=== PATIENT | male | born 1950 | race Caucasian/White ===

== ENCOUNTER → 2017-05-03 | Outpatient (CLI) | payer MEDICARE, OTHER ==
[2017-05-03 14:25] VITALS: BP 134/90; PULSE 83; RESP 16; TEMP 97.6
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
== END | disposition home or self-care (01) ==
LOC: PNWHC3 13:56
PROVIDERS: ATTEND Specialist
DX: M51.36 Other intervertebral disc degeneration, lumbar region (principal); M47.816 Spondylosis without myelopathy or radiculopathy, lumbar region; M46.86 Other specified inflammatory spondylopathies, lumbar region; M46.1 Sacroiliitis, not elsewhere classified; I48.91 Unspecified atrial fibrillation; I10 Essential (primary) hypertension; K21.9 Gastro-esophageal reflux disease without esophagitis; Z87.891 Personal history of nicotine dependence; Z79.01 Long term (current) use of anticoagulants; Z79.899 Other long term (current) drug therapy
CPT/HCPCS: 99211

== ENCOUNTER → 2017-05-21 | Outpatient (CLI) | payer MEDICARE, OTHER ==
--- NOTE | 2017-05-21 16:51 | US ---
EXAMINATION TYPE: US venous doppler duplex LE RT DATE OF EXAM: 05/21/2017 4:41 PM COMPARISON: NONE CLINICAL HISTORY: I82.401 Acute embolism and thrombosis RLE. Right lower leg pain and swelling x 4 da ys, patient on blood thinners SIDE PERFORMED: Right TECHNIQUE: The lower extremity deep venous system is examined utilizing real time linear array sonog sarah with graded compression, doppler sonography and color-flow sonography. VESSELS IMAGED: External Iliac Vein (EIV) Common Femoral Vein Deep Femoral Vein Greater Saphenous Vein * Femoral Vein Popliteal Vein Small Saphenous Vein * Proximal Calf Veins (* superficial vessels) Right Leg: Appears negative for DVT IMPRESSION: Negative exam. No evidence of deep venous thrombosis in the right leg.
== END | disposition home or self-care (01) ==
LOC: RADUSMAIN 16:06
PROVIDERS: ATTEND Podiatrist
DX: I82.401 Acute embolism and thrombosis of unspecified deep veins of right lower extremity (principal)

== ENCOUNTER 2017-05-26 08:15 | Day surgery (SDC) | payer MEDICARE, OTHER ==
[2017-05-24 11:55] VITALS: BMI 32.5
[2017-05-26] MEDS ORDERED: LACTATED RINGERS 1,000 ML IV ONE (09:34)
[2017-05-26 09:35] VITALS: RESP 18; TEMP 98.1
[2017-05-26] MEDS ORDERED: LIDOCAINE 1% 20 ML VIAL (10MG/ML) FOR IV START INTRADERMA ONE (09:36)
[2017-05-26] MEDS ORDERED: LACTATED RINGERS 1,000 ML IV SCH (09:45)
[2017-05-26 09:52] LABS: INR 1.2 (<1.1); Prothrombin Time 12.3 sec (9.0-12.0)
--- NOTE | 2017-05-26 10:29 | P.PCN ---
Date of Procedure: 05/26/17 Preoperative Diagnosis: Postoperative Diagnosis: Procedure(s) Performed: Implants: Surgeon: Sebastián Villanueva Pathology: none sent Condition: stable Disposition: PACU Indications for Procedure: Operative Findings: Description of Procedure: PREOPERATIVE DIAGNOSIS: 1-Lumbar radiculitis. POSTOPERATIVE DIAGNOSIS: 1-Lumbar radiculitis. PROCEDURE 1. Lumbar epidural steroid injection under fluoroscopic guidance at the L5-S1 level. 2. Lumbar epidurogram. ANESTHESIA: Local with 1% lidocaine; IV sedation with Versed/fentanyl. EBL: Minimal PROCEDURE INDICATION: The patient with low back pain and radiculitis symptoms unresponsive to conservative treatment. Fluoroscopy was used to optimize visualization of the needle placement and to maximize safety. Patient has been off Coumadin four days and INR 1.2 this AM. PROCEDURE DESCRIPTION / TECHNIQUE: The patient was seen and identified in the preoperative area. Risks, benefits, complications, and alternatives were discussed with the patient, including but not limited to bleeding, infection, nerve damage, allergic reactions to medications, and incomplete pain relief. The patient agreed to proceed with the procedure and signed the consent after all questions were answered. IV was started, and vital signs were stable. Patient was taken to the OR and time out was completed to confirm patient position, procedure, laterality of pain, and allergies. The patient was placed in the prone position on procedure table and a pillow was placed under the abdomen to reduce lumbar lordosis. The lumbosacral area was prepped and draped in the usual sterile fashion. Critical pause was taken. Vital signs were closely monitored during the procedure. Conscious sedation was used during the procedure to decrease patients anxiety. Using anterior-posterior fluoroscopy, the L5-S1 interlaminar space was identified and the skin over this site was marked and then infiltrated with 1% lidocaine subcutaneously. Subsequently, a 20-gauge 3.5-inch Tuohy epidural needle was inserted and advanced toward the epidural space using the Loss of resistance technique and guided by AP and lateral fluoroscopy. The correct needle position in the epidural space was verified with the injection of 2 mL of the water soluble contrast dye Omnipaque 300 contrast and observing an excellent epidurogram with the epidural spread of the dye, after negative aspiration for blood and CSF and in the absence of paresthesias. Again after negative aspiration, a 8 ml mixture containing 20 mg of PF Decadron and 5 ml of preservative free Normal Saline, and 2 ml of preservative free lidocaine 1% solution was injected and a washout of epidurogram was seen. Needle was withdrawn intact, skin was cleansed, and bandages were applied. COMPLICATIONS: None COMMENTS: DISPOSITION / PLANS: The patient was placed in a supine position and transferred to the recovery area in a stable condition for observation. There was no evidence of lower extremity motor or sensory deficit after the procedure. Patient was discharged from the recovery room after meeting discharge criteria. Home discharge instructions were given to the patient by the staff. The patient was reexamined prior to discharge and there were no issues. The patient will schedule a repeat LESI and was given a script for PT/ INR.
[2017-05-26] MEDS ORDERED: IV FLUID CONTINUATION 1,000 ML IV ONE (10:40)
--- NOTE | 2017-05-26 10:47 | FL ---
EXAMINATION TYPE: FL guided pain mgmt statistic DATE OF EXAM: 05/26/2017 HISTORY: Flouroscopy time 13 seconds of fluoroscopy provided. IMPRESSION: 1. Fluoroscopy time.
[2017-05-26 10:59] VITALS: BP 142/88; PULSE 83
== END 2017-05-26 11:09 | disposition home or self-care (01) ==
LOC: ORPAIN 08:15
PROVIDERS: ATTEND Anesthesiology
DX: G89.29 Other chronic pain (principal); M54.16 Radiculopathy, lumbar region; I48.91 Unspecified atrial fibrillation; I10 Essential (primary) hypertension; M19.90 Unspecified osteoarthritis, unspecified site; Z87.891 Personal history of nicotine dependence; Z79.01 Long term (current) use of anticoagulants; Z79.82 Long term (current) use of aspirin; Z79.899 Other long term (current) drug therapy; Z91.030 Bee allergy status
CPT/HCPCS: 85610; 62323; J2250; J1100; Q9965; J3010

== ENCOUNTER → 2017-06-15 | Outpatient (CLI) | payer MEDICARE, OTHER ==
[2017-06-15 10:12] LABS: INR 1.3 (<1.2); Prothrombin Time 12.6 sec (9.0-12.0)
== END | disposition home or self-care (01) ==
LOC: LABPAT 09:32
PROVIDERS: ATTEND Anesthesiology
DX: Z01.812 Encounter for preprocedural laboratory examination (principal)
CPT/HCPCS: 85610

== ENCOUNTER → 2019-03-06 | Outpatient (CLI) | payer MEDICARE, OTHER ==
[2019-03-06 15:17] LABS: Prothrombin Time 10.3 sec (9.0-12.0)
== END ==
LOC: LABWHC1 14:49
PROVIDERS: ATTEND Psychiatry & Neurology Neurology
DX: D65 Disseminated intravascular coagulation [defibrination syndrome] (principal); Z79.01 Long term (current) use of anticoagulants
CPT/HCPCS: 36415; 85610

== ENCOUNTER → 2019-03-21 | Outpatient (CLI) | payer MEDICARE, OTHER ==
[2019-03-21 13:46] LABS: Prothrombin Time 10.6 sec (9.0-12.0)
== END ==
LOC: LABWHC1 12:26
PROVIDERS: ATTEND Psychiatry & Neurology Pain Medicine
DX: Z51.81 Encounter for therapeutic drug level monitoring (principal)
CPT/HCPCS: 36415; 85610

== ENCOUNTER → 2019-03-28 | Outpatient (CLI) | payer MEDICARE, OTHER ==
[2019-03-28 10:27] LABS: Prothrombin Time 10.6 sec (9.0-12.0)
== END | disposition home or self-care (01) ==
LOC: LABWHC1 09:31
PROVIDERS: ATTEND Psychiatry & Neurology Neurology
DX: Z51.81 Encounter for therapeutic drug level monitoring (principal)
CPT/HCPCS: 36415; 85610

== ENCOUNTER → 2019-03-29 | Outpatient (CLI) | payer MEDICARE, OTHER ==
[2019-03-29 10:46] LABS: INR 0.9 (<1.2); Prothrombin Time 10.2 sec (9.0-12.0)
== END | disposition home or self-care (01) ==
LOC: LABWHC1 10:02
PROVIDERS: ATTEND Psychiatry & Neurology Neurology
DX: D65 Disseminated intravascular coagulation [defibrination syndrome] (principal)
CPT/HCPCS: 36415; 85610

== ENCOUNTER → 2019-04-26 | Outpatient (CLI) | payer MEDICARE, OTHER ==
[2019-04-26 12:38] LABS: Prothrombin Time 10.7 sec (9.0-12.0)
== END | disposition home or self-care (01) ==
LOC: LABWHC1 11:53
PROVIDERS: ATTEND Psychiatry & Neurology Neurology
DX: D65 Disseminated intravascular coagulation [defibrination syndrome] (principal); Z79.01 Long term (current) use of anticoagulants
CPT/HCPCS: 36415; 85610

== ENCOUNTER → 2019-08-03 | Outpatient (CLI) | payer MEDICARE, OTHER ==
[2019-08-03 11:18] LABS: INR 1.1 (<1.2); Prothrombin Time 11.3 sec (9.0-12.0)
== END | disposition home or self-care (01) ==
LOC: LABWHC1 10:05
PROVIDERS: ATTEND Psychiatry & Neurology Pain Medicine
DX: Z01.812 Encounter for preprocedural laboratory examination (principal); Z51.81 Encounter for therapeutic drug level monitoring
CPT/HCPCS: 36415; 85610

== ENCOUNTER → 2019-08-17 | Outpatient (CLI) | payer MEDICARE, OTHER ==
[2019-08-17 13:16] LABS: Prothrombin Time 10.3 sec (9.0-12.0)
== END | disposition home or self-care (01) ==
LOC: LABWHC1 12:36
PROVIDERS: ATTEND Psychiatry & Neurology Pain Medicine
DX: Z51.81 Encounter for therapeutic drug level monitoring (principal); Z79.899 Other long term (current) drug therapy
CPT/HCPCS: 36415; 85610

== ENCOUNTER → 2020-07-25 | Outpatient (CLI) | payer MEDICARE, OTHER ==
--- NOTE | 2020-07-25 13:52 | BD ---
EXAMINATION TYPE: Axial Bone Density DATE OF EXAM: 07/25/2020 COMPARISON: NONE CLINICAL HISTORY: Height: 68.7 IN Weight: 243 LBS RISK FACTORS HISTORY OF: Active: YES MEDICATIONS: Additional Medications: HEART MEDS, BLOOD PRESSURE MEDS, GABAPENTIN, PAIN PILL EXAM MEASUREMENTS: Bone mineral densitometry was performed using the Mashed jobs System. Bone mineral density as measured about the Lumbar spine is: ----- L1-L4(G/cm2): 1.510 T Score Values are as follows: ----- L2: 2.5 ----- L3: 3.0 ----- L4: 3.8 ----- L1-L4: 2.7 Bone mineral density BASELINE Bone mineral density about the R hip (g/cm2): 0.974 Bone mineral density about the L hip (g/cm2): 0.886 T Score values are as follows: -----R Neck: -0.5 -----L Neck: -1.1 -----R Total: 1.1 -----L Total: 0.7 Bone mineral density BASELINE IMPRESSION: No evidence for osteoporosis or osteopenia. NOTE: T-SCORE=SD OF THE YOUNG ADULT MEAN.
== END | disposition home or self-care (01) ==
LOC: RADBDWWP 10:26
PROVIDERS: ATTEND Psychiatry & Neurology Neurology
DX: M89.9 Disorder of bone, unspecified (principal)
CPT/HCPCS: 77080

== ENCOUNTER → 2020-07-31 | Outpatient (CLI) | payer MEDICARE, OTHER ==
--- NOTE | 2020-07-31 15:49 | US ---
EXAMINATION TYPE: US abdomen comp/pelvis limited DATE OF EXAM: 07/31/2020 COMPARISON: CT 04/01/2016 CLINICAL HISTORY: R10.9 L Renal Cyst. Extremely limited due to overlying bowel gas. Patient has herni a and was not NPO at time of exam EXAM MEASUREMENTS: Liver Length: 16.5 cm Gallbladder Wall: 0.2 cm CBD: 0.3 cm Right Kidney: 11.6 X 6.5 X 6.5 cm Left Kidney: 12.1 x 5.2 x 4.9 cm Spleen: 11.4 cm Pancreas: Obscured by bowel gas Liver: Coarse, heterogeneous Gallbladder: wnl CBD: wnl Spleen: wnl Right Kidney: No hydronephrosis or masses seen Left Kidney: No hydronephrosis. Cystic area visualized measuring 5.1 x 3.8 x 3.9 cm Upper IVC: obscured Abd Aorta: Obscured by overlying bowel gas Bladder: wnl as visualized IMPRESSION: 1. Left renal cyst.
== END | disposition home or self-care (01) ==
LOC: RADUSWWP 14:43
PROVIDERS: ATTEND Internal Medicine
DX: N28.1 Cyst of kidney, acquired (principal)
CPT/HCPCS: 76700; 76857

== ENCOUNTER 2023-08-03 21:19 | Inpatient (IN) | payer OTHER, MEDICARE ==
[2023-08-03] MEDS ORDERED: MORPHINE SULFATE 4 MG/ML SYRINGE IV STA (22:41)
[2023-08-03] MEDS ORDERED: SODIUM CHLORIDE 0.9% 1,000 ML IV STA (22:41)
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
[2023-08-03 22:55] LABS: Basophils % (A) 0 %; Eosinophils # (A) 0.2 k/uL (0-0.7); Eosinophils % (A) 2 %; Lymphocytes # (A) 1.7 k/uL (1.0-4.8); Lymphocytes % (A) 17 %; MCHC 32.7 g/dL (31.0-37.0); MCV 91.8 fL (80.0-100.0); Mean Platelet Volume 7.6; Monocytes # (A) 0.6 k/uL (0-1.0); Monocytes % (A) 6 %; Neutrophils % (A) 73 %; Platelet Count 230 k/uL (150-450); RBC 6.38 m/uL (4.30-5.90); RDW 13.7 % (11.5-15.5); WBC 9.6 k/uL (3.8-10.6)
[2023-08-03 22:59] LABS: INR 1.1 (<1.2); Prothrombin Time 11.4 sec (9.0-12.0)
[2023-08-03 23:51] LABS: ALT 20 U/L (4-49); African American GFR (CKD) >90 (>60 ml/min/1.73 sqM); Anion Gap 9 mmol/L; Blood Urea Nitrogen 13 mg/dL (9-20); Calcium 8.8 mg/dL (8.4-10.2); Carbon Dioxide 27 mmol/L (22-30); Chloride 103 mmol/L (98-107); Glucose 116 mg/dL (74-99); Non-African American GFR(CKD) >90 (>60 ml/min/1.73 sqM); Sodium 139 mmol/L (137-145)
[2023-08-03 23:57] LABS: HCT 58.6 % (39.0-53.0); HGB 19.2 gm/dL (13.0-17.5)
[2023-08-04] LABS: AST 39 U/L (17-59); Albumin 4.2 g/dL (3.5-5.0); Potassium 5.1 mmol/L (3.5-5.1); Total Bilirubin 1.5 mg/dL (0.2-1.3); Total Protein 7.8 g/dL (6.3-8.2)
[2023-08-04 00:01] LABS: Alkaline Phosphatase 77 U/L (38-126)
--- NOTE | 2023-08-04 00:59 | CT ---
EXAM: CT Abdomen and Pelvis With Intravenous Contrast CLINICAL HISTORY: ITS.REASON CT Reason: abdominal pain TECHNIQUE: Axial computed tomography images of the abdomen and pelvis with intravenous contrast. CTDI is 43.7 mGy and DLP is 2270.2 mGy-cm. This CT exam was performed using one or more of the following dose reduction techniques: automated exposure control, adjustment of the mA and/or kV according to patient size, and/or use of iterative reconstruction technique. COMPARISON: No relevant prior studies available. FINDINGS: Lung bases: Unremarkable. No mass. No consolidation. ABDOMEN: Liver: Unremarkable. No mass. Gallbladder and bile ducts: Unremarkable. No calcified stones. No ductal dilation. Pancreas: Unremarkable. No mass. No ductal dilation. Spleen: Unremarkable. No splenomegaly. Adrenals: Unremarkable. No mass. Kidneys and ureters: LEFT upper pole renal cyst measures 6.0 x 5.9 cm. No hydronephrosis. Stomach and bowel: Ventral abdominal wall hernia which is multifaceted and contains multiple loops of small bowel. Associate, small bowel obstruction, with entering small bowel dilated to 4.1 cm. The overall size of the hernia is approximately 22.8 x 9.4 x 9.5 cm. Surgical evaluation recommended. Diverticulosis, without acute diverticulitis. No free intraperitoneal air. PELVIS: Appendix: No acute appendicitis. Bladder: Unremarkable. No mass. Reproductive: Unremarkable as visualized. ABDOMEN and PELVIS: Intraperitoneal space: Unremarkable. No free air. No significant fluid collection. Bones/joints: Degenerative changes of the spine. No acute fracture. No dislocation. Soft tissues: Fat-containing LEFT inguinal hernia. Vasculature: Atherosclerotic changes of the aorta. No abdominal aortic aneurysm. Lymph nodes: Unremarkable. No enlarged lymph nodes. IMPRESSION: Large ventral abdominal wall hernia contributing to small bowel obstruction. Surgical evaluation recommended.
[2023-08-04] MEDS ORDERED: MORPHINE SULFATE 4 MG/ML SYRINGE IV STA (01:47)
[2023-08-04] MEDS ORDERED: MORPHINE SULFATE 4 MG/ML SYRINGE IV PRN (02:03)
[2023-08-04] MEDS ORDERED: NALOXONE 0.4 MG/ML 1 ML VIAL IV PRN ×2 (02:03→11:40)
[2023-08-04] MEDS ORDERED: PIPERACILLIN-TAZOBACTAM 3.375 GM in SODIUM CHLORIDE 0.9% 100 ML IVPB STA (02:04)
[2023-08-04] MEDS: SODIUM CHLORIDE 0.9% 1,000 ML IV SCH ×3 (02:53→16:31)
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
[2023-08-04] MEDS ORDERED: ONDANSETRON 4 MG/2 ML VIAL IVP PRN ×2 (04:51→11:40)
--- NOTE | 2023-08-04 05:29 | XR ---
EXAM: XR Chest, 1 View CLINICAL HISTORY: ITS.REASON XR Reason: NGT placement TECHNIQUE: Frontal view of the chest. COMPARISON: 06/17/2015 FINDINGS: Lungs: Unremarkable. No consolidation. Pleural space: Unremarkable. No pneumothorax. Heart: Unremarkable. No cardiomegaly. Mediastinum: Unremarkable. Bones/joints: Unremarkable. IMPRESSION: Normal chest x-ray.
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
[2023-08-04] MEDS ORDERED: HEPARIN SODIUM,PORCINE/PF 5,000 UNIT/0.5 ML SYRINGE SQ ONE (09:56)
[2023-08-04] MEDS ORDERED: DEXAMETHASONE SOD PHOSPHATE 4 MG/ML 1 ML VIAL IVP ONE (10:10)
[2023-08-04] MEDS ORDERED: ONDANSETRON 4 MG/2 ML VIAL IVP ONE (10:10)
[2023-08-04] MEDS ORDERED: METOPROLOL TARTRATE 5 MG/5 ML VIAL IVP ONE (10:10)
[2023-08-04] MEDS ORDERED: ROCURONIUM 10 MG/ML (5 ML VIAL) IV ONE (10:10)
[2023-08-04] MEDS ORDERED: fentaNYL (PF) 50 MCG/ML 2 ML AMP ONE (10:10)
[2023-08-04] MEDS ORDERED: HYDROmorphone (PF) 1 MG/ML ONE (10:10)
[2023-08-04] MEDS ORDERED: MIDAZOLAM 2 MG/2 ML VIAL ONE (10:10)
[2023-08-04] MEDS ORDERED: LIDOCAINE 2% INJ 20 MG/ML (2 ML VIAL) ONE (10:10)
[2023-08-04] MEDS ORDERED: SUCCINYLCHOLINE CHLORIDE 200 MG/10 ML VIAL IV ONE (10:10)
[2023-08-04] MEDS ORDERED: PROPOFOL 10 MG/ML 20 ML VIAL IV ONE (10:10)
[2023-08-04] MEDS ORDERED: IV FLUID CONTINUATION 1,000 ML IV ONE (10:20)
[2023-08-04] MEDS ORDERED: LACTATED RINGERS 1,000 ML IV ONE ×2 (11:20→11:40)
[2023-08-04] MEDS ORDERED: METOCLOPRAMIDE 5 MG/ML 2 ML VIAL IVP PRN (11:40)
[2023-08-04] MEDS ORDERED: HYDROmorphone 0.5 MG/0.5 ML SYRINGE IVP PRN (11:40)
[2023-08-04] MEDS ORDERED: ACETAMINOPHEN TAB 325 MG TAB PO PRN (11:40)
--- NOTE | 2023-08-04 11:40 | P.OP ---
Date of Procedure: 08/04/23 Preoperative Diagnosis: Recurrent Incarcerated incisional hernia with small bowel obstruction Postoperative Diagnosis: Same Procedure(s) Performed: Open repair of recurrent incarcerated incisional hernia with small bowel obstruction with mesh Partial omentectomy Placement of wound VAC Anesthesia: GEOVANNY Surgeon: Emanuel Flaherty Estimated Blood Loss (ml): 50 Pathology: other (Omentum) Condition: stable Disposition: PACU Description of Procedure: The patient's placed on the operating table in the supine position. He received general endotracheal tube anesthesia. His abdomen was prepped and draped in the usual sterile fashion. The patient had an obese abdomen. The patient had multiple laparotomy scars. There was a right mid transverse abdominal scar and a midline scar. The patient had a large recurrent incisional hernia located on the right paramedial area. The skin was incised in the midline. Then using blunt and sharp dissection with cautery the subcutaneous tissues were divided off of the hernia sac. The dissection was continued lateral. There was another hernia seen with incarcerated small bowel and another hernia seen with incarcerated omentum. The partial omentum was divided with cautery and sent to pathology. The hernia sac was then opened and then the incarcerated small bowel was reduced. Several adhesions were lysed were lysed within the hernia sac. The small bowel was viable. There is no injury to the small bowel. The second hernia sac was opened and the small bowel was reduced. At this point the abdominal wall was inspected. There was a large fascial defect. The previous mesh repair was visualized. Using. 0 Ethibond suture. The fascia of the incisional hernias was reapproximated. After the fascia was repaired. A 10 x 13" Prolene mesh was placed over top of the abdominal wall. It was cut to appropriate size. It was then secured with a secure strap tacker. Due to the risk of seroma and potential infection. It was decided not the abdominal subcutaneous skin layer. Using the wound VAC the black foam was placed in the wound. And then the wound VAC was applied. Patient tolerated procedure well. He was sent to recovery room in stable condition.
[2023-08-04] MEDS ORDERED: HYDROmorphone 0.5 MG/0.5 ML SYRINGE IVP ONE ×2 (11:59→14:35)
[2023-08-04] MEDS: KETOROLAC 15 MG/ML 1 ML VIAL IVP SCH ×3 (11:59→23:36)
--- NOTE | 2023-08-04 14:59 | P.PN ---
Subjective Progress Note Date: 08/04/23 Patient is a 72-year-old male with A. fib on Eliquis, ventral hernia, hypertension, GERD, and nicotine dependency presented with complaints of abdominal pain. CT demonstrated a very large ventral abdominal hernia which was contributing to small bulge structure. He was admitted to surgery and was taken emergently to undergo open repair of incarcerated incision hernia with small bowel obstruction, partial omentectomy, and placement of wound VAC. Patient seen and examined at bedside. Patient seems and recovery. He does complain of abdominal pain. He is having mild SOB, not lightheaded, mild nausea, and on other complaints currently. Vital signs reviewed General: nontoxic, no distress, appears at stated age Cardiovascular: S1S2 reg, no murmur, positive posterior tibial pulse bilateral, Lungs: Decreased bs bilateral, no rhonchi, no rales , no accessory muscle use Abdominal: soft, +tender to palpation, no guarding, no appreciable organomegaly Ext: no gross muscle atrophy, no edema b/l lower extremities, no contractures Neuro: CN II-XI grossly intact, no focal neuro deficits Psych: Alert, oriented, appropriate affect Assessment/Plan: Incarcerated ventral hernia with small bowel obstruction s/p repair of incarcerated incision hernia and partial omentectomy with wound vac placement. A fib anticoagulated with Eliquis HTN Dyslipidemia - Eliquis on hold unitl okay to resume per surgery - Lopressor 50 m BID, Tele - Norvasc 10 mg daily - lipitor 40 mg daily GERD - Protonix 40 mg daily Polycthemia, likely due to dehydration - check CBC in AM after fluid administration - if long standing suggest referral to heme/onc as outpatient for ANISHA testing nicotine dependency - cessation Imaging: none new for review Data Review: No new labs for review DVT prophylaxis: SCDs This dictation was prepared using [employer] voice recognition software. Though every attempt is made to correct errors during dictation some may still exist. Objective - Vital Signs Vital signs: Vital Signs Temp 97.1 F L 08/04/23 11:27 Pulse 91 08/04/23 14:30 Resp 16 08/04/23 14:30 BP 164/90 08/04/23 14:30 Pulse Ox 92 L 08/04/23 14:30 FiO2 Intake & Output 08/03/23 08/04/23 08/04/23 18:59 06:59 18:59 Intake Total 750 Output Total 50 Balance 700 Weight 95.254 kg 95.254 kg Intake: IV 750 Output: Estimated Blood Loss 50 - Labs CBC & Chem 7: 08/03/23 22:20 08/03/23 23:20 Labs: Abnormal Lab Results - Last 24 Hours (Table) 08/03/23 08/03/23 Range/Units 22:20 23:20 RBC 6.38 H (4.30-5.90) m/uL Hgb 19.2 H* (13.0-17.5) gm/dL Hct 58.6 H* (39.0-53.0) % Glucose 116 H (74-99) mg/dL Total Bilirubin 1.5 H (0.2-1.3) mg/dL
[2023-08-04] MEDS: PIPERACILLIN-TAZOBACTAM 3.375 GM in SODIUM CHLORIDE 0.9% 100 ML IVPB SCH ×2 (15:03→18:15)
[2023-08-04] MEDS: HYDROmorphone 1 MG/ML 1 ML SYRINGE IVP PRN ×3 (16:10→23:35)
[2023-08-04 16:27] LABS: Basophils % (A) 0 %; Eosinophils % (A) 0 %; HCT 52.7 % (39.0-53.0); HGB 17.6 gm/dL (13.0-17.5); Lymphocytes # (A) 0.7 k/uL (1.0-4.8); Lymphocytes % (A) 4 %; MCH 30.8 pg (25.0-35.0); MCHC 33.4 g/dL (31.0-37.0); MCV 92.3 fL (80.0-100.0); Mean Platelet Volume 7.1; Monocytes # (A) 0.7 k/uL (0-1.0); Monocytes % (A) 5 %; Neutrophils # (A) 14.4 k/uL (1.3-7.7); Neutrophils % (A) 91 %; Platelet Count 209 k/uL (150-450); RBC 5.71 m/uL (4.30-5.90); RDW 13.9 % (11.5-15.5); WBC 15.9 k/uL (3.8-10.6)
[2023-08-04 16:34] LABS: African American GFR (CKD) >90 (>60 ml/min/1.73 sqM); Anion Gap 7 mmol/L; Blood Urea Nitrogen 15 mg/dL (9-20); Calcium 8.1 mg/dL (8.4-10.2); Carbon Dioxide 28 mmol/L (22-30); Chloride 105 mmol/L (98-107); Glucose 126 mg/dL (74-99); Non-African American GFR(CKD) 83 (>60 ml/min/1.73 sqM); Potassium 4.4 mmol/L (3.5-5.1); Sodium 140 mmol/L (137-145)
[2023-08-05] MEDS: SODIUM CHLORIDE 0.9% 1,000 ML IV SCH ×3 (02:01→17:33)
[2023-08-05] MEDS: HYDROmorphone 1 MG/ML 1 ML SYRINGE IVP PRN ×5 (03:11→21:39)
[2023-08-05] MEDS: PIPERACILLIN-TAZOBACTAM 3.375 GM in SODIUM CHLORIDE 0.9% 100 ML IVPB SCH ×3 (03:12→18:53)
[2023-08-05] MEDS: KETOROLAC 15 MG/ML 1 ML VIAL IVP SCH ×3 (06:15→17:26)
[2023-08-05 06:58] LABS: Basophils % (A) 0 %; Eosinophils % (A) 0 %; HCT 50.1 % (39.0-53.0); HGB 15.7 gm/dL (13.0-17.5); Hypochromasia Slight; Lymphocytes # (A) 1.1 k/uL (1.0-4.8); Lymphocytes % (A) 9 %; MCH 29.4 pg (25.0-35.0); MCHC 31.4 g/dL (31.0-37.0); MCV 93.7 fL (80.0-100.0); Mean Platelet Volume 7.7; Monocytes # (A) 1.1 k/uL (0-1.0); Monocytes % (A) 9 %; Neutrophils # (A) 9.9 k/uL (1.3-7.7); Neutrophils % (A) 80 %; Platelet Count 191 k/uL (150-450); RBC 5.35 m/uL (4.30-5.90); RDW 14.1 % (11.5-15.5); WBC 12.4 k/uL (3.8-10.6)
[2023-08-05 07:10] LABS: ALT 17 U/L (4-49); AST 21 U/L (17-59); African American GFR (CKD) 86 (>60 ml/min/1.73 sqM); Albumin 3.2 g/dL (3.5-5.0); Albumin/Globulin Ratio 1.1; Alkaline Phosphatase 65 U/L (38-126); Anion Gap 7 mmol/L; Blood Urea Nitrogen 23 mg/dL (9-20); Carbon Dioxide 28 mmol/L (22-30); Chloride 106 mmol/L (98-107); Globulin 2.9 g/dL; Glucose 101 mg/dL (74-99); Non-African American GFR(CKD) 74 (>60 ml/min/1.73 sqM); Potassium 4.2 mmol/L (3.5-5.1); Sodium 141 mmol/L (137-145); Total Protein 6.1 g/dL (6.3-8.2)
[2023-08-05] MEDS: ENOXAPARIN 40 MG/0.4 ML SYRINGE SQ SCH (09:41)
[2023-08-05] MEDS: METOPROLOL TARTRATE 25 MG TAB PO SCH ×2 (14:24→20:51)
[2023-08-05] MEDS: TAMSULOSIN 0.4 MG CAP.ER.24H PO SCH (14:24)
[2023-08-05] MEDS: amLODIPine 10 MG TAB PO SCH (14:24)
--- NOTE | 2023-08-05 14:30 | P.PN ---
Subjective Progress Note Date: 08/05/23 (delayed charting seen at 1027) Patient is a 72-year-old male with A. fib on Eliquis, ventral hernia, hypertension, GERD, and nicotine dependency presented with complaints of abdominal pain. CT demonstrated a very large ventral abdominal hernia which was contributing to small bulge structure. He was admitted to surgery and was taken emergently to undergo open repair of incarcerated incision hernia with small bowel obstruction, partial omentectomy, and placement of wound VAC. Patient seen and examined at bedside. He is having some abdominal pain today. He did pass gas and ready. He denies any chest pain or shortness of breath. He has some clear liquids with a made him nauseated and he therefore stopped. Vital signs reviewed General: nontoxic, no distress, appears at stated age Cardiovascular: S1S2 reg, no murmur, positive posterior tibial pulse bilateral, Lungs: Decreased bs bilateral, no rhonchi, no rales , no accessory muscle use Abdominal: soft, +tender to palpation, no guarding, no appreciable organomegaly Ext: no gross muscle atrophy, no edema b/l lower extremities, no contractures Neuro: CN II-XI grossly intact, no focal neuro deficits Psych: Alert, oriented, appropriate affect Assessment/Plan: Incarcerated ventral hernia with small bowel obstruction s/p repair of incarcerated incision hernia and partial omentectomy with wound vac placement. - on ZOsyn 3.375 g IVPB q 8 hours Hypertension, accelerated likely multifactorial secondary to pain in patient's oral medications being held -Norvasc 10 mg daily, metoprolol 25 mg twice daily A fib anticoagulated with Eliquis Dyslipidemia - Eliquis on hold until okay to resume per surgery - Lopressor 50 m BID, Tele - resume statin GERD - Protonix 40 mg daily Polycthemia, likely due to dehydration, resolved nicotine dependency - cessation Imaging: none new for review Data Review: Vitals reviewed and patient afebrile. Labs reviewed from today include CBC, BMP, and liver function. They're remarkable for white blood cell count 12.4, BUN 23, bilirubin of 2. Blood culture so no growth to date DVT prophylaxis: SCDs This dictation was prepared using [employer] voice recognition software. Though every attempt is made to correct errors during dictation some may still exist. Objective - Vital Signs Vital signs: Vital Signs Temp 98 F 08/05/23 13:55 Pulse 103 H 08/05/23 13:55 Resp 19 08/05/23 13:55 BP 185/85 08/05/23 13:55 Pulse Ox 95 08/05/23 13:55 FiO2 Intake & Output 08/04/23 08/05/23 08/05/23 18:59 06:59 18:59 Intake Total 1300 Output Total 50 Balance 1250 Weight 95.254 kg Intake: IV 1300 Oral 0 Output: Estimated Blood Loss 50 Other: Voiding Method Urinal # Voids 0 3 - Labs CBC & Chem 7: 08/05/23 06:03 08/05/23 06:03 Labs: Abnormal Lab Results - Last 24 Hours (Table) 08/04/23 08/04/23 08/05/23 Range/Units 16:00 16:00 06:03 WBC 15.9 H 12.4 H (3.8-10.6) k/uL Hgb 17.6 H (13.0-17.5) gm/dL Neutrophils # 14.4 H 9.9 H (1.3-7.7) k/uL Lymphocytes # 0.7 L (1.0-4.8) k/uL Monocytes # 1.1 H (0-1.0) k/uL BUN (9-20) mg/dL Glucose 126 H (74-99) mg/dL Calcium 8.1 L (8.4-10.2) mg/dL Total Bilirubin (0.2-1.3) mg/dL Total Protein (6.3-8.2) g/dL Albumin (3.5-5.0) g/dL 08/05/23 Range/Units 06:03 WBC (3.8-10.6) k/uL Hgb (13.0-17.5) gm/dL Neutrophils # (1.3-7.7) k/uL Lymphocytes # (1.0-4.8) k/uL Monocytes # (0-1.0) k/uL BUN 23 H (9-20) mg/dL Glucose 101 H (74-99) mg/dL Calcium 8.0 L (8.4-10.2) mg/dL Total Bilirubin 2.0 H (0.2-1.3) mg/dL Total Protein 6.1 L (6.3-8.2) g/dL Albumin 3.2 L (3.5-5.0) g/dL Microbiology - Last 24 Hours (Table) 08/04/23 01:42 Blood Culture - Preliminary Blood 08/04/23 01:42 Blood Culture - Preliminary Blood
--- NOTE | 2023-08-05 15:02 | P.PN ---
Subjective Progress Note Date: 08/05/23 CHIEF COMPLAINT: Incisional hernia HISTORY OF PRESENT ILLNESS: Postoperative day #1 status post open repair of recurrent incarcerated incisional hernia with small bowel obstruction with mesh. Patient does complain of abdominal pain. He reports that he is waiting longer for pain medication because there are nursing students. He did have some nausea earlier that has improved. He is having flatus. Afebrile. White count 15 down to 12.4. Hgb 15.7 platelets 191 PHYSICAL EXAM: VITAL SIGNS: Reviewed. GENERAL: Well-developed in no acute distress. ABDOMEN: Soft. Nondistended. Tender at incision site Patient has wound VAC in place. Abdominal binder NEUROLOGIC: Alert and oriented. Cranial nerves II through XII grossly intact. ASSESSMENT: 1. Recurrent Incarcerated incisional hernia with small bowel obstruction status post PLAN: -Continue wound VAC management -Continue pain management -Incentive spirometer ordered -Continue antibiotics -Continue clear liquid diet -Continue Lovenox for DVT prophylaxis Physician Clinical Services Assistant note has been reviewed by physician. Signing provider agrees with the documented findings, assessment, and plan of care. Objective - Vital Signs Vital signs: Vital Signs Temp 98.8 F 08/05/23 07:54 Pulse 97 08/05/23 07:54 Resp 20 08/05/23 07:54 BP 160/94 08/05/23 07:54 Pulse Ox 93 L 08/05/23 01:26 FiO2 Intake & Output 08/04/23 08/05/23 08/05/23 18:59 06:59 18:59 Intake Total 1300 Output Total 50 Balance 1250 Weight 95.254 kg Intake: IV 1300 Oral 0 Output: Estimated Blood Loss 50 Other: Voiding Method Urinal # Voids 0 3 - Labs CBC & Chem 7: 08/05/23 06:03 08/05/23 06:03 Labs: Abnormal Lab Results - Last 24 Hours (Table) 08/04/23 08/04/23 08/05/23 Range/Units 16:00 16:00 06:03 WBC 15.9 H 12.4 H (3.8-10.6) k/uL Hgb 17.6 H (13.0-17.5) gm/dL Neutrophils # 14.4 H 9.9 H (1.3-7.7) k/uL Lymphocytes # 0.7 L (1.0-4.8) k/uL Monocytes # 1.1 H (0-1.0) k/uL BUN (9-20) mg/dL Glucose 126 H (74-99) mg/dL Calcium 8.1 L (8.4-10.2) mg/dL Total Bilirubin (0.2-1.3) mg/dL Total Protein (6.3-8.2) g/dL Albumin (3.5-5.0) g/dL 08/05/23 Range/Units 06:03 WBC (3.8-10.6) k/uL Hgb (13.0-17.5) gm/dL Neutrophils # (1.3-7.7) k/uL Lymphocytes # (1.0-4.8) k/uL Monocytes # (0-1.0) k/uL BUN 23 H (9-20) mg/dL Glucose 101 H (74-99) mg/dL Calcium 8.0 L (8.4-10.2) mg/dL Total Bilirubin 2.0 H (0.2-1.3) mg/dL Total Protein 6.1 L (6.3-8.2) g/dL Albumin 3.2 L (3.5-5.0) g/dL
[2023-08-06] MEDS: KETOROLAC 15 MG/ML 1 ML VIAL IVP SCH ×2 (00:12→06:18)
[2023-08-06] MEDS: SODIUM CHLORIDE 0.9% 1,000 ML IV SCH ×3 (00:13→20:36)
[2023-08-06] MEDS: PIPERACILLIN-TAZOBACTAM 3.375 GM in SODIUM CHLORIDE 0.9% 100 ML IVPB SCH ×3 (02:44→19:15)
[2023-08-06] MEDS: HYDROmorphone 1 MG/ML 1 ML SYRINGE IVP PRN ×5 (04:23→20:35)
[2023-08-06] MEDS: TAMSULOSIN 0.4 MG CAP.ER.24H PO SCH (08:28)
[2023-08-06] MEDS: METOPROLOL TARTRATE 25 MG TAB PO SCH ×2 (08:28→20:34)
[2023-08-06] MEDS: ENOXAPARIN 40 MG/0.4 ML SYRINGE SQ SCH (08:29)
[2023-08-06] MEDS: amLODIPine 10 MG TAB PO SCH (08:29)
[2023-08-06] MEDS: Rosuvastatin Calcium [Crestor] 40 MG Tablet PO SCH (08:43)
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
--- NOTE | 2023-08-06 11:24 | P.PN ---
Subjective Progress Note Date: 08/06/23 Patient is a 72-year-old male with A. fib on Eliquis, ventral hernia, hypertension, GERD, and nicotine dependency presented with complaints of abdominal pain. CT demonstrated a very large ventral abdominal hernia which was contributing to small bulge structure. He was admitted to surgery and was taken emergently to undergo open repair of incarcerated incision hernia with small bowel obstruction, partial omentectomy, and placement of wound VAC. Patient seen and examined at bedside. He continues to have abdominal pain that is worse with movement. He denies any nausea or vomiting. He is tolerating his current diet. He is passed some more gas but has not yet had a bowel movement. Vital signs reviewed General: nontoxic, no distress, appears at stated age Cardiovascular: S1S2 reg, no murmur, positive posterior tibial pulse bilateral, Lungs: Decreased bs bilateral, no rhonchi, no rales , no accessory muscle use Abdominal: soft, +tender to palpation, no guarding, no appreciable organomegaly Ext: no gross muscle atrophy, no edema b/l lower extremities, no contractures Neuro: CN II-XI grossly intact, no focal neuro deficits Psych: Alert, oriented, appropriate affect Assessment/Plan: Incarcerated ventral hernia with small bowel obstruction s/p repair of incarcerated incision hernia and partial omentectomy with wound vac placement. - on Zosyn 3.375 g IVPB q 8 hours D # 3 -Decrease normal saline to 75 mL/h -Wound care note reviewed: Continue with wound vac. Hypertension -Norvasc 10 mg daily, metoprolol 25 mg twice daily A fib anticoagulated with Eliquis Dyslipidemia - Eliquis on hold until okay to resume per surgery - Lopressor 50 m BID, Tele - resume statin GERD - Protonix 40 mg daily Polycthemia, likely due to dehydration, resolved nicotine dependency - cessation Imaging: none new for review Data Review: Vitals reveals an afebrile for the last 24 hours. Labs reviewed included CBC and basic metabolic profile which were both unremarkable. DVT prophylaxis: SCDs This dictation was prepared using [employer] voice recognition software. Though every attempt is made to correct errors during dictation some may still exist. Objective - Vital Signs Vital signs: Vital Signs Temp 98.9 F 08/06/23 06:57 Pulse 95 08/06/23 06:57 Resp 20 08/06/23 06:57 BP 157/89 08/06/23 06:57 Pulse Ox 100 08/06/23 06:57 FiO2 Intake & Output 08/05/23 08/06/23 08/06/23 18:59 06:59 18:59 Output Total 900 550 325 Balance -900 -550 -325 Output: Urine 900 550 325 Other: # Voids 3 # Bowel Movements 0 - Labs CBC & Chem 7: 08/06/23 06:35 08/06/23 06:35 Labs: Microbiology - Last 24 Hours (Table) 08/04/23 01:42 Blood Culture - Preliminary Blood 08/04/23 01:42 Blood Culture - Preliminary Blood
[2023-08-06 13:13] LABS: Basophils # (A) 0.04 X 10*3/uL (0.00-0.10); Basophils % (A) 0.5 %; Eosinophils # (A) 0.09 X 10*3/uL (0.04-0.35); HCT 44.5 % (39.6-50.0); HGB 14.2 d/dL (13.0-17.0); Lymphocytes # (A) 1.43 X 10*3/uL (0.90-5.00); Lymphocytes % (A) 16.4 %; MCH 29.8 pg (27.0-32.0); MCHC 31.9 d/dL (32.0-37.0); MCV 93.5 FL (80.0-97.0); Monocytes % (A) 11.5 %; NRBC Per 100 WBC 0 X 10*3/uL (0.00-0.01); Neutrophils # (A) 6.09 X 10*3/uL (1.80-7.70); Neutrophils % (A) 69.9 %; Platelet Count 183 X 10*3/uL (140-440); RBC 4.76 X 10*6/uL (4.40-5.60); RDW 13.4 % (11.5-14.5); WBC 8.71 X 10*3/uL (4.50-10.00)
[2023-08-06] MEDS: HYDROcodone/APAP 5-325MG 1 EACH TAB PO PRN ×2 (14:05→23:19)
[2023-08-06 14:20] LABS: BUN/Creat Ratio 16.67 Ratio (12.00-20.00); Calcium 7.7 mg/dL (8.7-10.3); Carbon Dioxide 27.2 mmol/L (21.6-31.8); Chloride 107 mmol/L (96-109); Glucose 108 mg/dL (70-110); Potassium 3.9 mmol/L (3.5-5.5); Sodium 143 mmol/L (135-145)
--- NOTE | 2023-08-06 16:04 | P.PN ---
Subjective Progress Note Date: 08/06/23 CHIEF COMPLAINT: Incisional hernia HISTORY OF PRESENT ILLNESS: Postoperative day #2 status post open repair of recurrent incarcerated incisional hernia with small bowel obstruction with mesh. Patient does complain of abdominal pain but controlled with pain medication. He is having flatus. No bowel movement. Wound VAC changed today. Patient reports that he is having difficulty sleeping. Afebrile. WBC is down from 12- 8.71 Hgb 14.2 PHYSICAL EXAM: VITAL SIGNS: Reviewed. GENERAL: Well-developed in no acute distress. ABDOMEN: Soft. Nondistended. Wound VAC intact. Abdominal binder NEUROLOGIC: Alert and oriented. Cranial nerves II through XII grossly intact. ASSESSMENT: 1. Recurrent Incarcerated incisional hernia with small bowel obstruction status post PLAN: -Continue wound VAC management -Continue pain management -Incentive spirometer ordered -Continue antibiotics -Advance diet to full liquids -[place] added for pain control -Melatonin added for sleep aid -Continue Lovenox for DVT prophylaxis Physician Smalltalk Developer note has been reviewed by physician. Signing provider agrees with the documented findings, assessment, and plan of care. Objective - Vital Signs Vital signs: Vital Signs Temp 98.9 F 08/06/23 06:57 Pulse 95 08/06/23 06:57 Resp 20 08/06/23 06:57 BP 157/89 08/06/23 06:57 Pulse Ox 100 08/06/23 06:57 FiO2 Intake & Output 08/05/23 08/06/23 08/06/23 18:59 06:59 18:59 Output Total 900 550 325 Balance -900 -550 -325 Output: Urine 900 550 325 Other: # Voids 3 # Bowel Movements 0 - Labs CBC & Chem 7: 08/06/23 06:35 08/06/23 06:35 Labs: Abnormal Lab Results - Last 24 Hours (Table) 08/06/23 Range/Units 06:35 MCHC 31.9 L (32.0-37.0) d/dL Microbiology - Last 24 Hours (Table) 08/04/23 01:42 Blood Culture - Preliminary Blood 08/04/23 01:42 Blood Culture - Preliminary Blood
[2023-08-06] MEDS: MELATONIN 3 MG TABLET PO SCH (20:34)
[2023-08-07] MEDS: HYDROmorphone 1 MG/ML 1 ML SYRINGE IVP PRN ×5 (01:10→23:39)
[2023-08-07] MEDS: PIPERACILLIN-TAZOBACTAM 3.375 GM in SODIUM CHLORIDE 0.9% 100 ML IVPB SCH ×3 (03:46→18:45)
[2023-08-07] MEDS: HYDROcodone/APAP 5-325MG 1 EACH TAB PO PRN ×4 (03:48→20:51)
[2023-08-07] MEDS: SODIUM CHLORIDE 0.9% 1,000 ML IV SCH (07:14)
--- NOTE | 2023-08-07 08:15 | P.PN ---
Progress Note - Text Progress Note Date: 08/07/23 Patient states he feels well. He is tolerating diet. He has minimal complaints of abdominal pain. On exam vital signs appear stable. Abdomen soft. Wound vacs in place. Status post repair of large incarcerated recurrent incisional hernia. Patient will most likely be discharged home Wednesday. he received supportive care.
[2023-08-07] MEDS: ENOXAPARIN 40 MG/0.4 ML SYRINGE SQ SCH (09:26)
[2023-08-07] MEDS: TAMSULOSIN 0.4 MG CAP.ER.24H PO SCH (09:26)
[2023-08-07] MEDS: amLODIPine 10 MG TAB PO SCH (09:26)
[2023-08-07] MEDS: METOPROLOL TARTRATE 25 MG TAB PO SCH ×2 (09:26→20:51)
[2023-08-07] MEDS: Rosuvastatin Calcium [Crestor] 40 MG Tablet PO SCH (09:30)
--- NOTE | 2023-08-07 13:43 | P.PN ---
Subjective Progress Note Date: 08/07/23 Patient is a 72-year-old male with A. fib on Eliquis, ventral hernia, hypertension, GERD, and nicotine dependency presented with complaints of abdominal pain. CT demonstrated a very large ventral abdominal hernia which was contributing to small bulge structure. He was admitted to surgery and was taken emergently to undergo open repair of incarcerated incision hernia with small bowel obstruction, partial omentectomy, and placement of wound VAC. Patient seen and examined at bedside. He continues to pass flatus but has not had a bowel movement. Pain control is getting better and he is moving slightly easier. No nausea or vomiting. Tolerating full liquid diet. Vital signs reviewed General: nontoxic, no distress, appears at stated age Cardiovascular: S1S2 reg, no murmur, positive posterior tibial pulse bilateral, Lungs: Decreased bs bilateral, no rhonchi, no rales , no accessory muscle use Abdominal: soft, +tender to palpation, no guarding, no appreciable organomegaly Ext: no gross muscle atrophy, trace edema b/l lower extremities, no contractures Neuro: CN II-XI grossly intact, no focal neuro deficits Psych: Alert, oriented, appropriate affect Assessment/Plan: Incarcerated ventral hernia with small bowel obstruction s/p repair of incarcerated incision hernia and partial omentectomy with wound vac placement. - on Zosyn 3.375 g IVPB q 8 hours D # 4 -Discontinue normal saline to 75 mL/h -Wound care note reviewed: Continue with wound vac. -Surgery note reviewed: Continue supportive care. Likely home on wednesday Hypertension -Norvasc 10 mg daily, metoprolol 25 mg twice daily A fib anticoagulated with Eliquis Dyslipidemia - Eliquis on hold until okay to resume per surgery - Lopressor 50 m BID, Tele - Crestor 20 mg daily GERD - Protonix 40 mg daily Polycthemia, likely due to dehydration, resolved nicotine dependency - cessation Imaging: none new for review Data Review: Vitals reviewed in afebrile for the last 24 hours Blood cultures negative 72 hours DVT prophylaxis: SCDs This dictation was prepared using [email or web address] voice recognition software. Though every attempt is made to correct errors during dictation some may still exist. Objective - Vital Signs Vital signs: Vital Signs Temp 97.4 F L 08/07/23 07:05 Pulse 93 08/07/23 07:05 Resp 19 08/07/23 07:05 BP 180/98 08/07/23 07:05 Pulse Ox 92 L 08/07/23 07:05 FiO2 Intake & Output 08/06/23 08/07/23 08/07/23 18:59 06:59 18:59 Intake Total 1810 Output Total 325 1145 Balance -325 665 Intake: Intake, IV Titration 850 Amount Piperacillin-Tazobactam 3 100 .375 gm In Sodium Chloride 0.9% 100 ml @ 25 mls/hr IVPB Q8H ABDULAZIZ Rx#: [id number] Sodium Chloride 0.9% 1, 750 000 ml @ 75 mls/hr IV . [id number] ABDULAZIZ Rx#:[id number] Oral 960 Output: Urine 325 1145 Other: Voiding Method Urinal # Voids 2 1 - Labs CBC & Chem 7: 08/06/23 06:35 08/06/23 06:35 Labs: Abnormal Lab Results - Last 24 Hours (Table) 08/06/23 Range/Units 06:35 Calcium 7.7 L (8.7-10.3) mg/dL Microbiology - Last 24 Hours (Table) 08/04/23 01:42 Blood Culture - Preliminary Blood 08/04/23 01:42 Blood Culture - Preliminary Blood
[2023-08-07] MEDS: MELATONIN 3 MG TABLET PO SCH (20:51)
[2023-08-08] MEDS: PIPERACILLIN-TAZOBACTAM 3.375 GM in SODIUM CHLORIDE 0.9% 100 ML IVPB SCH ×3 (02:33→18:27)
[2023-08-08] MEDS: HYDROcodone/APAP 5-325MG 1 EACH TAB PO PRN ×2 (02:34→06:34)
[2023-08-08] MEDS: HYDROmorphone 1 MG/ML 1 ML SYRINGE IVP PRN (05:18)
--- NOTE | 2023-08-08 10:20 | P.PN ---
Progress Note - Text Progress Note Date: 08/08/23 The patient is doing fairly well. He has some mild Pain. He is tolerating diet. On exam vital signs are stable. Abdomen soft. Status post repair of large incarcerated incisional hernia. Patient will be discharged home tomorrow with wound VAC
[2023-08-08] MEDS: METOPROLOL TARTRATE 25 MG TAB PO SCH ×2 (10:44→21:28)
[2023-08-08] MEDS: TAMSULOSIN 0.4 MG CAP.ER.24H PO SCH (10:44)
[2023-08-08] MEDS: ENOXAPARIN 40 MG/0.4 ML SYRINGE SQ SCH (10:44)
[2023-08-08] MEDS: amLODIPine 10 MG TAB PO SCH (10:44)
[2023-08-08] MEDS ORDERED: HYDROcodone/APAP 5-325MG 1 EACH TAB PO PRN (10:49)
[2023-08-08] MEDS: HYDROcodone/APAP 7.5-325MG 1 EACH TAB PO PRN ×3 (10:52→21:28)
[2023-08-08] MEDS: Rosuvastatin Calcium [Crestor] 40 MG Tablet PO SCH (11:52)
--- NOTE | 2023-08-08 13:26 | P.PN ---
Subjective Progress Note Date: 08/08/23 Patient is a 72-year-old male with A. fib on Eliquis, ventral hernia, hypertension, GERD, and nicotine dependency presented with complaints of abdominal pain. CT demonstrated a very large ventral abdominal hernia which was contributing to small bulge structure. He was admitted to surgery and was taken emergently to undergo open repair of incarcerated incision hernia with small bowel obstruction, partial omentectomy, and placement of wound VAC. He is feeling okay today. He has been tolerating his diet well but did not have a bowel movement yet. I encouraged oral pain medications as we are transitioning to home. Vital signs reviewed General: nontoxic, no distress, appears at stated age Cardiovascular: S1S2 reg, no murmur, positive posterior tibial pulse bilateral, Lungs: Decreased bs bilateral, no rhonchi, no rales , no accessory muscle use Abdominal: soft, +tender to palpation, no guarding, no appreciable organomegaly Ext: no gross muscle atrophy, trace edema b/l lower extremities, no contractures Neuro: CN II-XI grossly intact, no focal neuro deficits Psych: Alert, oriented, appropriate affect Assessment/Plan: Incarcerated ventral hernia with small bowel obstruction s/p repair of incarcerated incision hernia and partial omentectomy with wound vac placement. - on Zosyn 3.375 g IVPB q 8 hours D # 5 -Discontinue normal saline to 75 mL/h -Last wound care note: Continue with wound vac. - add norco 7.5 mg q6 prn pain to current pain management. Encourage oral pain medications Adrenal reviewed: Continue supportive care. Likely home Wednesday. Hypertension -Norvasc 10 mg daily, metoprolol 25 mg twice daily A fib anticoagulated with Eliquis Dyslipidemia - resume eliquis 5 mg twice daily - Lopressor 50 m BID, Tele - Crestor 20 mg daily GERD - Protonix 40 mg daily Polycthemia, likely due to dehydration, resolved nicotine dependency - cessation Imaging: none new for review Data Review: Vitals reviewed and afebrile for the last 24 hours DVT prophylaxis: SCDs This dictation was prepared using [employer] voice recognition software. Though every attempt is made to correct errors during dictation some may still exist. Objective - Vital Signs Vital signs: Vital Signs Temp 97.6 F 08/08/23 07:30 Pulse 92 08/08/23 07:30 Resp 18 08/08/23 07:30 BP 157/93 08/08/23 07:30 Pulse Ox 94 L 08/08/23 07:30 FiO2 Intake & Output 08/07/23 08/08/23 08/08/23 18:59 06:59 18:59 Output Total 600 700 Balance -600 -700 Output: Urine 600 700 Other: Voiding Method Urinal Urinal # Voids 5 # Bowel Movements 0 - Labs CBC & Chem 7: 08/06/23 06:35 08/06/23 06:35 Labs: Microbiology - Last 24 Hours (Table) 08/04/23 01:42 Blood Culture - Preliminary Blood 08/04/23 01:42 Blood Culture - Preliminary Blood
[2023-08-08] MEDS ORDERED: LACTULOSE 20 GM/30 ML CUP PO ONE (13:52)
[2023-08-08] MEDS: APIXABAN 5 MG TAB PO SCH (21:29)
[2023-08-08] MEDS: MELATONIN 3 MG TABLET PO SCH (21:29)
[2023-08-09] MEDS: HYDROcodone/APAP 7.5-325MG 1 EACH TAB PO PRN ×4 (03:19→20:23)
[2023-08-09] MEDS: PIPERACILLIN-TAZOBACTAM 3.375 GM in SODIUM CHLORIDE 0.9% 100 ML IVPB SCH ×3 (03:19→18:32)
[2023-08-09] MEDS: amLODIPine 10 MG TAB PO SCH (08:40)
[2023-08-09] MEDS: TAMSULOSIN 0.4 MG CAP.ER.24H PO SCH (08:40)
[2023-08-09] MEDS: METOPROLOL TARTRATE 25 MG TAB PO SCH ×2 (08:40→20:22)
[2023-08-09] MEDS: APIXABAN 5 MG TAB PO SCH ×2 (08:40→20:22)
[2023-08-09] MEDS: Rosuvastatin Calcium [Crestor] 40 MG Tablet PO SCH (08:44)
--- NOTE | 2023-08-09 13:37 | P.PN ---
Subjective Progress Note Date: 08/09/23 Patient is a 72-year-old male with A. fib on Eliquis, ventral hernia, hypertension, GERD, and nicotine dependency presented with complaints of abdominal pain. CT demonstrated a very large ventral abdominal hernia which was contributing to small bulge structure. He was admitted to surgery and was taken emergently to undergo open repair of incarcerated incision hernia with small bowel obstruction, partial omentectomy, and placement of wound VAC. He is feeling okay today. His pain is getting a little better every day. He has already walked the hallways today, he had 2 bowel movements since I last saw him. He is tolerating his diet well. Vital signs reviewed General: nontoxic, no distress, appears at stated age Cardiovascular: S1S2 reg, no murmur, positive posterior tibial pulse bilateral, Lungs: CTA bilateral, no rhonchi, no rales , no accessory muscle use Abdominal: soft, +tender to palpation, no guarding, no appreciable organomegaly Ext: no gross muscle atrophy, trace edema b/l lower extremities, no contractures Neuro: CN II-XI grossly intact, no focal neuro deficits Psych: Alert, oriented, appropriate affect Assessment/Plan: Incarcerated ventral hernia with small bowel obstruction s/p repair of incarcerated incision hernia and partial omentectomy with wound vac placement. - on Zosyn 3.375 g IVPB q 8 hours D #6, no need for abx on discharge -Last wound care note: Continue with wound vac. - norco 5/7.5 mg q6 prn painper scale -Case discussed with surgical nurse practitioner. Plan will be for home once the wound VAC [facility]. Hypertension -Norvasc 10 mg daily, metoprolol 25 mg twice daily A fib anticoagulated with Eliquis Dyslipidemia -eliquis 5 mg twice daily - Lopressor 50 m BID, Tele - Crestor 20 mg daily GERD - Protonix 40 mg daily Polycthemia, likely due to dehydration, resolved nicotine dependency - cessation Imaging: none new for review Data Review: Vitals reviewed. Patient afebrile last 24 hours. Blood cultures negative DVT prophylaxis: SCDs This dictation was prepared using [employer] voice recognition software. Though every attempt is made to correct errors during dictation some may still exist. Objective - Vital Signs Vital signs: Vital Signs Temp 98.1 F 08/09/23 08:00 Pulse 93 08/09/23 08:00 Resp 16 08/09/23 01:15 BP 165/105 08/09/23 08:00 Pulse Ox 95 08/09/23 08:00 FiO2 Intake & Output 08/08/23 08/09/23 08/09/23 18:59 06:59 18:59 Output Total 500 600 200 Balance -500 -600 -200 Output: Urine 500 600 200 Other: Voiding Method Urinal Urinal # Bowel Movements 1 - Labs CBC & Chem 7: 08/06/23 06:35 08/06/23 06:35 Labs: Microbiology - Last 24 Hours (Table) 08/04/23 01:42 Blood Culture - Final Blood 08/04/23 01:42 Blood Culture - Final Blood
--- NOTE | 2023-08-09 15:06 | P.PN ---
Subjective Progress Note Date: 08/09/23 CHIEF COMPLAINT: Incisional hernia HISTORY OF PRESENT ILLNESS: Postoperative day #5 status post open repair of recurrent incarcerated incisional hernia with small bowel obstruction with mesh. Patient reports his pain is controlled. He is having bowel movements. Social work is working on arranging wound VAC and home care outpatient. Abdominal wound measurements 20 x 10 x 5 cm. Afebrile. WBC 8.71 PHYSICAL EXAM: VITAL SIGNS: Reviewed. GENERAL: Well-developed in no acute distress. ABDOMEN: Soft. Nondistended. Wound VAC intact. Abdominal binder NEUROLOGIC: Alert and oriented. Cranial nerves II through XII grossly intact. ASSESSMENT: 1. Recurrent Incarcerated incisional hernia with small bowel obstruction status post PLAN: -Wound VAC to be changed today -Continue pain management -Continue Incentive spirometer -Continue antibiotics for now. No antibiotics needed at discharge -Anticipate discharge possibly tomorrow once wound VAC and home care is arranged outpatient -Continue Lovenox for DVT prophylaxis Physician Review Specialist note has been reviewed by physician. Signing provider agrees with the documented findings, assessment, and plan of care. Objective - Vital Signs Vital signs: Vital Signs Temp 98.2 F 08/09/23 14:00 Pulse 83 08/09/23 14:00 Resp 16 08/09/23 01:15 BP 126/77 08/09/23 14:00 Pulse Ox 95 08/09/23 14:00 FiO2 Intake & Output 08/08/23 08/09/23 08/09/23 18:59 06:59 18:59 Output Total 500 600 200 Balance -500 -600 -200 Output: Urine 500 600 200 Other: Voiding Method Urinal Urinal # Bowel Movements 1 - Labs CBC & Chem 7: 08/06/23 06:35 08/06/23 06:35 Labs: Microbiology - Last 24 Hours (Table) 08/04/23 01:42 Blood Culture - Final Blood 08/04/23 01:42 Blood Culture - Final Blood
[2023-08-09] MEDS: MELATONIN 3 MG TABLET PO SCH (20:23)
[2023-08-10] MEDS: HYDROcodone/APAP 7.5-325MG 1 EACH TAB PO PRN ×2 (03:24→09:14)
[2023-08-10] MEDS: PIPERACILLIN-TAZOBACTAM 3.375 GM in SODIUM CHLORIDE 0.9% 100 ML IVPB SCH ×2 (03:25→11:55)
[2023-08-10] MEDS: Rosuvastatin Calcium [Crestor] 40 MG Tablet PO SCH (09:06)
[2023-08-10] MEDS: TAMSULOSIN 0.4 MG CAP.ER.24H PO SCH (09:14)
[2023-08-10] MEDS: METOPROLOL TARTRATE 25 MG TAB PO SCH (09:14)
[2023-08-10] MEDS: amLODIPine 10 MG TAB PO SCH (09:14)
[2023-08-10] MEDS: APIXABAN 5 MG TAB PO SCH (09:15)
--- NOTE | 2023-08-10 13:12 | CDI ---
This would constitute a surgical wound with wound VAC. Documentation Clarification Form Date: 08/10/2023 08:13:30 AM From: Jennifer Hare RN CCDS Phone: [phone] Admit Date: 08/04/2023 02:05:00 AM Patient Name: Gopal Mccall Visit Number: [id number] Discharge Date: ATTENTION: The Clinical Documentation Specialists (CDI) and [facility] Coding Staff appreciate your assistance in clarifying documentation. Please respond to the clarification below the line at the bottom and electronically sign. The CDI & [facility] Coding staff will review the response and follow-up if needed. Please note: Queries are made part of the Legal Health Record. If you have any questions, please contact the author of this message via ITS. Dr. Trey Queen Conflicting documentation has been found in the medical record. As attending physician, please provide clarification. Non healing ulceration with muscle exposure without necrosis, Wound care consult, 08/06. Patient underwent surgery for incarcerated incisional hernia being seen on 4S with a negative wound VAC in place. Wound care consult, 08/06. History/Risk Factors: 72-year-old male presents to the ED for hernia pain. Medical history: Previous hernia surgeries with mesh. 08/04, ED note. Clinical Indicators: Wound care consult, 08/06. Ulceration measures approximately 10 x 13cm. Procedure note open repair of recurrent incarcerated incisional hernia with small bowel obstruction with mesh, 08/04: After the fascia was repaired. A 10 x 13" Prolene mesh was placed over top of the abdominal wall. It was cut to appropriate size. It was then secured with a secure strap tacker. Due to the risk of seroma and potential infection .It was decided not the abdominal subcutaneous skin layer. Using the wound VAC the black foam was placed in the wound. And then the wound VAC was applied. Treatment: Apply negative pressure wound VAC at 150 mmHg with black foam to continuous pressure change Wednesday. Please clarify which diagnosis is most appropriate: [ ] Surgical wound with wound VAC [ ] Non healing ulceration with muscle exposure without necrosis [ ] Other (please specify) [ ] Unable to determine (Template Last Revised: January 2021) MTDD
[2023-08-10 13:31] VITALS: BP 126/76; PULSE 98; RESP 18; TEMP 98.1
--- NOTE | 2023-08-10 13:32 | P.DS ---
Providers Date of admission: 08/04/23 02:05 Expected date of discharge: 08/10/23 Attending physician: Emanuel Flaherty Consults: 08/04/23 02:03 Consult Physician Routine Consulting Provider: Murtaza Gunderson Consult Reason/Comments: medicine consult Do you want consulting provider notified?: Already Contacted Primary care physician: [facility] Hospital Course: Discharge diagnoses 1. Recurrent Incarcerated incisional hernia with small bowel obstruction Hospital course This is a 72-year-old male with a known history of ventral hernia for several years. Patient presented to the hospital complaint of abdominal pain at the ventral hernia site. CAT scan had shown evidence of a large ventral hernia contributing to small bowel obstruction. Patient is status post open repair of recurrent incarcerated incisional hernia with small bowel obstruction with mesh and wound VAC placement. Patient reports his pain is controlled. He is tolerating diet. He is afebrile. He has been up and ambulating. He is having bowel movements and flatus. He is tolerating diet. He is stable for discharge. Patient will be discharged later today once insurance authorization for wound VAC has been received. Patient is stable for discharge. Please refer to chart for any further details. Physician [facility] note has been reviewed by physician. Signing provider agrees with the documented findings, assessment, and plan of care. Patient Condition at Discharge: Stable Plan - Discharge Summary Discharge Rx Participant: Yes New Discharge Prescriptions: New oxyCODONE HCL [OxyIR] 5 mg PO Q6H PRN 3 Days #12 tab PRN Reason: Pain Acetaminophen Tab [Tylenol] 1,000 mg PO Q6HR PRN #30 tablet PRN Reason: Pain Continue Nitroglycerin Sl Tabs [Nitrostat] 0.4 mg SUBLINGUAL Q5M PRN #25 tab PRN Reason: Chest Pain Omeprazole [PriLOSEC] 20 mg PO DAILY Metoprolol Tartrate [Lopressor] 25 mg PO BID amLODIPine [Norvasc] 10 mg PO DAILY EPINEPHrine (Auto Inject) [Epipen] 0.3 mg IM ONCE PRN PRN Reason: Anaphylaxis Apixaban [Eliquis] 5 mg PO BID Tamsulosin HCl [Flomax] 0.4 mg PO DAILY Rosuvastatin Calcium [Crestor] 20 mg PO DAILY Sennosides/Docusate Sodium [Senna-S 8.6-50 mg Tablet] 1 tab PO DAILY Naloxone HCl [Narcan] 4 mg NASAL DIRECTED PRN PRN Reason: overdose Loratadine [Claritin] 10 mg PO DAILY PRN PRN Reason: Allergy Symptoms Discharge Medication List Nitroglycerin Sl Tabs [Nitrostat] 0.4 mg SUBLINGUAL Q5M PRN #25 tab 06/19/15 [Rx] Metoprolol Tartrate [Lopressor] 25 mg PO BID 09/17/15 [History] Omeprazole [PriLOSEC] 20 mg PO DAILY 09/17/15 [History] EPINEPHrine (Auto Inject) [Epipen] 0.3 mg IM ONCE PRN 04/01/16 [History] amLODIPine [Norvasc] 10 mg PO DAILY 04/01/16 [History] Apixaban [Eliquis] 5 mg PO BID 08/04/23 [History] Loratadine [Claritin] 10 mg PO DAILY PRN 08/04/23 [History] Naloxone HCl [Narcan] 4 mg NASAL DIRECTED PRN 08/04/23 [History] Rosuvastatin Calcium [Crestor] 20 mg PO DAILY 08/04/23 [History] Sennosides/Docusate Sodium [Senna-S 8.6-50 mg Tablet] 1 tab PO DAILY 08/04/23 [History] Tamsulosin HCl [Flomax] 0.4 mg PO DAILY 08/04/23 [History] Acetaminophen Tab [Tylenol] 1,000 mg PO Q6HR PRN #30 tablet 08/10/23 [Rx] oxyCODONE HCL [OxyIR] 5 mg PO Q6H PRN 3 Days #12 tab 08/10/23 [Rx] Follow up Appointment(s)/Referral(s): [facility] [NON-STAFF] - 1 Week [facility]Clinic [Primary Care Provider] - 1-2 days Emanuel Flaherty MD [STAFF PHYSICIAN] - 1 Week Activity/Diet/Wound Care/Special Instructions: No driving while taking OxyIR No lifting over 10 pounds You may shower. No soaking or tub baths for 2 weeks Very light activity until you are reevaluated at your follow up appointment with your surgeon Wound Vac dressing to be changed Mon, Wed, Fri by home care service Discharge Disposition: HOME WITH HOME HEALTH SERVICES
--- NOTE | 2023-08-10 15:48 | P.PN ---
Subjective Progress Note Date: 08/10/23 Patient is a 72-year-old male with A. fib on Eliquis, ventral hernia, hypertension, GERD, and nicotine dependency presented with complaints of abdominal pain. CT demonstrated a very large ventral abdominal hernia which was contributing to small bulge structure. He was admitted to surgery and was taken emergently to undergo open repair of incarcerated incision hernia with small bowel obstruction, partial omentectomy, and placement of wound VAC. 08/10 Patient was seen and examined. He reports well controlled pain. Worse with cough. He is tolerating his diet well. Awaiting wound vac for discharge home. Vital signs reviewed General: nontoxic, no distress, appears at stated age Cardiovascular: S1S2 reg, no murmur Lungs: CTA bilateral, no rhonchi, no rales , no accessory muscle use Abdominal: soft, +tender to palpation, no guarding, no appreciable organomegaly Ext: no gross muscle atrophy, trace edema b/l lower extremities, no contractures Neuro: no focal neuro deficits Psych: Alert, oriented, appropriate affect Incarcerated ventral hernia with small bowel obstruction s/p repair of incarc erated incision hernia and partial omentectomy with wound vac placement. - on Zosyn 3.375 g IVPB q 8 hours D #6, no need for abx on discharge - Last wound care note: Continue with wound vac. - norco 5/7.5 mg q6 prn painper scale - Case discussed with surgical nurse practitioner. Plan will be for home once the wound VAC approved through [facility]. Hypertension -Norvasc 10 mg daily, metoprolol 25 mg twice daily A fib anticoagulated with Eliquis Dyslipidemia - eliquis 5 mg twice daily - Lopressor 50 m BID, Tele - Crestor 20 mg daily GERD - Protonix 40 mg daily Polycthemia, likely due to dehydration, resolved nicotine dependency - cessation Imaging: none new for review Data Review: Vitals reviewed. Patient afebrile last 24 hours. Blood cultures negative DVT prophylaxis: SCDs Objective - Vital Signs Vital signs: Vital Signs Temp 98.1 F 08/10/23 13:30 Pulse 98 08/10/23 13:30 Resp 18 08/10/23 13:30 BP 126/76 08/10/23 13:30 Pulse Ox 93 L 08/10/23 13:30 FiO2 Intake & Output 08/09/23 08/10/23 08/10/23 18:59 06:59 18:59 Intake Total 200 Output Total 700 550 300 Balance -500 -550 -300 Intake: Intake, IV Titration 200 Amount Piperacillin-Tazobactam 3 200 .375 gm In Sodium Chloride 0.9% 100 ml @ 25 mls/hr IVPB Q8H PENDING SALE TO [facility] Rx#: [id number] Output: Urine 700 550 300 Other: Voiding Method Urinal Urinal # Voids 1 - Labs CBC & Chem 7: 08/06/23 06:35 08/06/23 06:35 Labs: Microbiology - Last 24 Hours (Table) 08/04/23 01:42 Blood Culture - Final Blood 08/04/23 01:42 Blood Culture - Final Blood
--- NOTE | 2023-08-11 13:24 | CDI ---
Documentation Clarification Form Date: 08/11/2023 01:00:06 PM From: Kristie Elizondo Admit Date: 08/04/2023 02:05:00 AM Patient Name: Gopal Mccall Visit Number: [id number] Discharge Date: 08/10/2023 04:56:00 PM ATTENTION: The Clinical Documentation Specialists (CDI) and [facility] Coding Staff appreciate your assistance in clarifying documentation. Please respond to the clarification below the line at the bottom and electronically sign. The CDI & [facility] Coding staff will review the response and follow-up if needed. Please note: Queries are made part of the Legal Health Record. If you have any questions, please contact the author of this message via ITS. Dr. Emanuel Flaherty There is documentation in History of Present Illness in the H and P "Patient's NG tube is currently not in the correct position and weill be replace. Please clarify if patient's NG, that was placed in ER, later became positioned incorrectly and was it replaced? Additional clarification is requested. History/Risk Factors: Patient with obstruction from incisional hernia. NG placed in ER CXR is normal Treatment: Replace NG tube is documented. I do not see order Can you please clarify if NG tube was positioned incorrectly and was it replace? [ ] NG tube positioned incorrectly with replacement [ ] NG tube positioned correctly with no replacement [ ] Other, please specify [ xx] Unable to determine MTDD
== END 2023-08-10 16:56 | disposition home health service (06) | DRG 355 ==
LOC: EC 21:19 → 4SSUR 08-04 02:05
PROVIDERS: ADMIT Surgery; ATTEND Surgery
PROC: 0D9670Z Drainage of Stomach with Drainage Device, Via Natural or Artificial Opening (ICD-10-PCS; 2023-08-04)
PROC: 0D20XUZ Change Feeding Device in Upper Intestinal Tract, External Approach (ICD-10-PCS; 2023-08-04)
PROC: 0DBU0ZZ Excision of Omentum, Open Approach (ICD-10-PCS; principal; 2023-08-04 09:55)
PROC: 0WUF0JZ Supplement Abdominal Wall with Synthetic Substitute, Open Approach (ICD-10-PCS; principal; 2023-08-04 09:55)
DX: K43.0 Incisional hernia with obstruction, without gangrene (principal); I10 Essential (primary) hypertension; K21.9 Gastro-esophageal reflux disease without esophagitis; I48.91 Unspecified atrial fibrillation; E78.5 Hyperlipidemia, unspecified; E86.0 Dehydration; Z71.6 Tobacco abuse counseling; F17.290 Nicotine dependence, other tobacco product, uncomplicated; G89.29 Other chronic pain; D75.1 Secondary polycythemia; M19.90 Unspecified osteoarthritis, unspecified site; M54.9 Dorsalgia, unspecified; F43.10 Post-traumatic stress disorder, unspecified; I25.10 Atherosclerotic heart disease of native coronary artery without angina pectoris; Z79.01 Long term (current) use of anticoagulants; Z79.82 Long term (current) use of aspirin; Z79.899 Other long term (current) drug therapy; Z95.5 Presence of coronary angioplasty implant and graft; Z90.49 Acquired absence of other specified parts of digestive tract; Z88.8 Allergy status to other drugs, medicaments and biological substances; Z91.030 Bee allergy status; Z87.19 Personal history of other diseases of the digestive system
CPT/HCPCS: 36415; 74177; 80048; 80053; 83605; 85025; 85610; 85730; 87040; 88302; 93005; 96361; 96365; 96366; 96375; 96376; 99285

== ENCOUNTER 2023-09-25 14:34 | Emergency (ER) | payer OTHER, MEDICARE ==
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
[2023-09-25 16:25] LABS: HCT 45.9 % (39.0-53.0); HGB 14.9 gm/dL (13.0-17.5); MCH 29.5 pg (25.0-35.0); MCHC 32.6 g/dL (31.0-37.0); MCV 90.7 fL (80.0-100.0); Mean Platelet Volume 7.2; Platelet Count 243 k/uL (150-450); RBC 5.06 m/uL (4.30-5.90); RDW 14.1 % (11.5-15.5); WBC 6.4 k/uL (3.8-10.6)
[2023-09-25 16:41] LABS: ALT 17 U/L (4-49); AST 23 U/L (17-59); African American GFR (CKD) >90 (>60 ml/min/1.73 sqM); Albumin 3.9 g/dL (3.5-5.0); Alkaline Phosphatase 75 U/L (38-126); Anion Gap 8 mmol/L; Blood Urea Nitrogen 15 mg/dL (9-20); Calcium 8.8 mg/dL (8.4-10.2); Carbon Dioxide 30 mmol/L (22-30); Chloride 103 mmol/L (98-107); Glucose 97 mg/dL (74-99); Non-African American GFR(CKD) 86 (>60 ml/min/1.73 sqM); Potassium 4.4 mmol/L (3.5-5.1); Sodium 141 mmol/L (137-145); Total Bilirubin 0.7 mg/dL (0.2-1.3)
[2023-09-25 17:57] VITALS: BP 158/95; PULSE 64; RESP 18; TEMP 97.9
== END 2023-09-25 17:44 | disposition home or self-care (01) ==
LOC: EC 14:34
DX: Z48.00 Encounter for change or removal of nonsurgical wound dressing (principal); I48.91 Unspecified atrial fibrillation; K21.9 Gastro-esophageal reflux disease without esophagitis; I10 Essential (primary) hypertension; M19.90 Unspecified osteoarthritis, unspecified site; F17.290 Nicotine dependence, other tobacco product, uncomplicated; Z91.030 Bee allergy status; Z88.8 Allergy status to other drugs, medicaments and biological substances; Z79.899 Other long term (current) drug therapy
CPT/HCPCS: 36415; 80053; 83605; 85027; 99283

== ENCOUNTER 2023-11-29 06:08 | Day surgery (SDC) | payer MEDICARE, OTHER ==
[2023-11-26 11:28] VITALS: BMI 30.4
[~2023-11-29 06:08] MED LIST: ACETAMINOPHEN TAB 500 MG TAB PO PRN; HEPARIN SODIUM,PORCINE 5,000 UNIT/ML 1 ML VIAL SQ PRN
[2023-11-29] MEDS ORDERED: LACTATED RINGERS 1,000 ML IV SCH (06:47)
[2023-11-29] MEDS ORDERED: MIDAZOLAM 2 MG/2 ML VIAL IV PRN (06:47)
[2023-11-29] MEDS ORDERED: fentaNYL (PF) 50 MCG/ML 2 ML AMP IVP PRN (06:47)
[2023-11-29] MEDS ORDERED: DEXAMETHASONE SOD PHOSPHATE 4 MG/ML 1 ML VIAL IV ONE (06:47)
[2023-11-29] MEDS ORDERED: ONDANSETRON 4 MG/2 ML VIAL IVP ONE (06:47)
[2023-11-29] MEDS ORDERED: HYDROmorphone 0.5 MG/0.5 ML SYRINGE IVP PRN (06:47)
[2023-11-29] MEDS ORDERED: LIDOCAINE 1% (10MG/ML) FOR IV START INTRADERMA PRN (06:47)
[2023-11-29] MEDS ORDERED: GLYCOPYRROLATE 0.2 MG/ML 2 ML VIAL ONE (07:40)
[2023-11-29] MEDS ORDERED: SUCCINYLCHOLINE CHLORIDE 200 MG/10 ML VIAL IV ONE (07:40)
[2023-11-29] MEDS ORDERED: NEOSTIGMINE 1 MG/ML 10 ML VIAL ONE (07:40)
[2023-11-29] MEDS ORDERED: fentaNYL (PF) 50 MCG/ML 2 ML AMP ONE (07:40)
[2023-11-29] MEDS ORDERED: LIDOCAINE 1% INJ 10MG/ML (20 ML MDV) ONE (07:40)
[2023-11-29] MEDS ORDERED: ROCURONIUM 10 MG/ML (5 ML VIAL) IV ONE (07:40)
[2023-11-29] MEDS ORDERED: PHENYLEPHRINE 10 MG/ML VIAL ONE (07:40)
[2023-11-29] MEDS ORDERED: PROPOFOL 10 MG/ML 20 ML VIAL IV ONE (07:40)
--- NOTE | 2023-11-29 08:43 | P.OP ---
Date of Procedure: 11/29/23 Preoperative Diagnosis: Exposed abdominal wall mesh Postoperative Diagnosis: Exposed abdominal mesh Procedure(s) Performed: Debridement of abdominal wall mesh Anesthesia: GEOVANNY Surgeon: Emanuel Flaherty Estimated Blood Loss (ml): 5 Pathology: other (Mesh) Condition: stable Disposition: PACU Description of Procedure: The patient's placed on the operating table in the supine position. He received general endotracheal tube anesthesia. His abdomen was prepped and draped usual sterile fashion. The abdominal wall was examined. There was a 3 x 1 cm portion of the abdominal wall mesh which was exposed near the midline. There is also 1 cm a 1 cm area which was exposed just above this. Using a pair of metastases months scissors the mesh was debrided sharply. The mesh was sent to pathology. No other mesh was visualized. What to dry dressings applied. Patient tolerated the procedure well. He was sent to recovery room in stable condition.
[2023-11-29 08:50] VITALS: TEMP 96.8
[2023-11-29 09:39] VITALS: RESP 16
[2023-11-29 10:25] VITALS: BP 130/80; PULSE 75
== END 2023-11-29 10:00 | disposition home or self-care (01) ==
LOC: OR 06:08 → EDSTATUS 07:30 → OR 10:00
PROVIDERS: ATTEND Surgery
DX: T83.728A Exposure of other implanted mesh into organ or tissue, initial encounter (principal); I25.10 Atherosclerotic heart disease of native coronary artery without angina pectoris; I48.91 Unspecified atrial fibrillation; M19.90 Unspecified osteoarthritis, unspecified site; G89.29 Other chronic pain; I10 Essential (primary) hypertension; K21.9 Gastro-esophageal reflux disease without esophagitis; Z95.5 Presence of coronary angioplasty implant and graft; Z79.01 Long term (current) use of anticoagulants; Z79.899 Other long term (current) drug therapy; Z98.890 Other specified postprocedural states
CPT/HCPCS: 11005; 88300; J0330; J1644; J1100; J2710; J0690; J2405; J2001; J3010; J2704; J1170; J2371

== ENCOUNTER → 2023-12-21 | Outpatient (CLI) | payer MEDICARE, OTHER ==
[2023-12-21 13:34] VITALS: BP 163/125; PULSE 73; RESP 15; TEMP 98.5
--- NOTE | 2023-12-21 14:21 | P.PAINPG ---
Objective - Vital Signs Vital signs: Intake & Output 12/20/23 12/21/23 12/21/23 18:59 06:59 18:59 Weight 98.883 kg PQRS Measure Charge Sheet Comment: HISTORY OF PRESENT ILLNESS: A 73 yr old male as a referral from the presents today w severe and chronic LBP x 4 yrs secondary to DDD, spondylosis and facet arthropathy without myelopathy for evaluation. Pt states pain level is provoked at 9 /10 in intensity, constant, localized in the lumbar spine, predominantly axial, tingling in character w occasional shooting pain towards the RLE. Pain is provoked by lifting, bending. Pain is alleviated by PT x 6 wks 4 yrs ago, medications ([place] 7.5/325mg), manual massage, repositioning and rest. Oswestry axial pain score at 34. PMH: OA, HTN, CAD, PAD, aFib, MDD/ PTSD, Tinnitus, GERD, BPH PSH: Ventral Wall Hernia Repair x2, Abd Mesh Debridement (Oct 2023), Colon Resection, Appendectomy, R Ankle Fracture w Screws, R Thumb Surgery, R Eye Surgery, L Femoral Endarectomy SH: Hx of tobacco use, Occasional ETOH use, No illicit drug use FH: Non contributory All: See list Meds: See list REVIEW OF ORGAN SYSTEMS: CONSTITUTIONAL: No fevers or chills. No recent weight loss. NEUROLOGICAL: + numbness and tingling along the distal extremities. No seizure disorders or headaches. MUSCULOSKELETAL: + pain PSYCHIATRIC: Denies current depression or suicidal thoughts. Physical Examinations : Constitutional : Cooperative , not in acute distress . Neurologic : Cranial nerve II to XII intact. No focal neurological deficits. Psychiatric : alert & oriented x 3. Matching mood & appropriate affect. Judgment & insight intact. Musculoskeletal : Cervical Spine Motor strength in the deltoid and biceps: Normal right side. Normal Left side Motor strength biceps and the wrist extensors: Normal right side . Normal left side Motor strength in the triceps muscle: Normal right side. Normal left side Deep tendon reflexes: Normal at the biceps. Normal at Brachioradialis. Normal at triceps Vertebral body tenderness to deep palpation over Cervical facet loading test: positive bilaterally Spurling test: positive bilaterally Neck distraction test: positive bilaterally Dexter sign: positive bilaterally Lumbar spine Motor strength lower extremities ,thigh and legs 5/5 Right side , 5/5 Left side Deep tendon reflexes : Normal Knee Jerk. Normal Ankle Jerk Vertebral body tenderness over Moreno Test positive Lumbar facet Loading Test: positive Right / positive Left Range of motion of the lumbar spine Flexion 30 degrees, extension 10 degrees Straight Leg Raise test: Left/ Right positive at degrees Vito test: positive right / positive left. Severe tenderness over the Sacroiliac joint on the Right / Left sides Gaenslen test: positive bilaterally Seated flexion test: positive bilaterally. Sacral spine : Severe tenderness over the Sacroiliac joint: right side / left side Range of motion: Flexion of the lumbar spine <60 degrees Range of motion: Extension of the lumbar spine <20 degrees Gaenslen's Test positive Vito test: positive right side / left side Thigh Thrust Test Sacral Thrust Test Imaging: MRI noncontrast of the lumbar spine from 07/01/2020 reviewed MRI contrast/ noncontrast of the cervical spine from 12/29/2022 reviewed Assessment/ Plan : Lumbar DDD Recommendation of lumbar x ray M51.36 May need additional testing if indicated. Risks, benefits discussed and patient verbalized understanding. Admits to anti- coagulant use or medical history of diabetes. Protocol for discontinuation/ continuation of medications luis a procedure discussed. Minimal anesthesia provided, if clinically indicated, consisting of Versed and Fentanyl. Recommendation of medication management [place] 7.5/325 mg #90 w 1 RF. Use, side effects, adverse reactions and safe storage discussed. Opiate/ Narcotic agreement signed 12/21/23. All questions answered. I have spent greater than 30 minutes on patient care today. Dr Santos was available by phone for the evaluation of this patient. The time was used to review the medical records including relevant urine studies and Prescription history (MAPs), review of the available imaging, evaluation and examination of the patient, coordination of care with the medical staff and if applicable referring physicians, as well as creation of the medical record - Pain Location Bilateral Lower Back Non-Pharmacological Interventions: Heat, Ice, Position/Reposition Pharmacological Interventions: Scheduled Medication PQRS Narrative: Smoking Status Former smoker Hx Alcohol Use (MH) No Home Medications: Ambulatory Orders Nitroglycerin Sl Tabs [Nitrostat] 0.4 mg SUBLINGUAL Q5M PRN #25 tab 06/19/15 Metoprolol Tartrate [Lopressor] 25 mg PO BID 09/17/15 Omeprazole [PriLOSEC] 20 mg PO DAILY 09/17/15 EPINEPHrine (Auto Inject) [Epipen] 0.3 mg IM ONCE PRN 04/01/16 amLODIPine [Norvasc] 10 mg PO DAILY 04/01/16 Apixaban [Eliquis] 5 mg PO BID 08/04/23 Rosuvastatin Calcium [Crestor] 20 mg PO DIRECTED 08/04/23 Sennosides/Docusate Sodium [Senna-S 8.6-50 mg Tablet] 1 tab PO DAILY 08/04/23 Tamsulosin HCl [Flomax] 0.4 mg PO HS 08/04/23 HYDROcodone/APAP 7.5-325MG [[place] 7.5-325] 1 tab PO TID PRN 30 Days #90 tab 12/21/23 HYDROcodone/APAP 7.5-325MG [[place] 7.5-325] 1 tab PO TID PRN 30 Days #90 tab 12/21/23 Controlled Substance Measures - Controlled Substance Measures Is patient prescribed a controlled substance at discharge?: Yes When asked, does pt state using other controlled substances?: No If prescribed controlled substance>3 days was MAPS reviewed?: Yes If Rx opioid, was Start Talking consent form obtained?: Yes Was information provided regarding opioid addiction?: Yes
--- NOTE | 2023-12-21 14:32 | XR ---
EXAM TYPE: LUMBAR SPINE X RAY SERIES COMPARISON: NONE HISTORY: Pain TECHNIQUE: 4 views are submitted. FINDINGS: Alignment is anatomic. The pedicles are intact. The transverse processes are intact. There is post operative changes. There is vascular calcifications. Abdominal aortic aneurysm is suspected. Mild art hropathy of the SI joints. There is hypertrophic and degenerative changes of the spine most marked at L4-5 and L5-S1 with facet arthropathy and foraminal encroachment. Interspinous process arthropathy c ompatible with [place] disease. IMPRESSION: 1. Degenerative disc disease lower lumbar spine with facet arthropathy and suspected foraminal encroa chment. 2. Findings are suspicious for abdominal aortic aneurysm
== END ==
LOC: PNWHC3 12:22
PROVIDERS: ATTEND Specialist
DX: M51.16 Intervertebral disc disorders with radiculopathy, lumbar region (principal); M47.26 Other spondylosis with radiculopathy, lumbar region; I10 Essential (primary) hypertension; F43.10 Post-traumatic stress disorder, unspecified; M51.9 Unspecified thoracic, thoracolumbar and lumbosacral intervertebral disc disorder; I25.10 Atherosclerotic heart disease of native coronary artery without angina pectoris; G47.00 Insomnia, unspecified; K21.9 Gastro-esophageal reflux disease without esophagitis; I48.91 Unspecified atrial fibrillation; I73.9 Peripheral vascular disease, unspecified; F41.1 Generalized anxiety disorder; G89.29 Other chronic pain; M19.90 Unspecified osteoarthritis, unspecified site; F32.9 Major depressive disorder, single episode, unspecified; N40.0 Benign prostatic hyperplasia without lower urinary tract symptoms; Z87.891 Personal history of nicotine dependence; Z79.899 Other long term (current) drug therapy; Z79.01 Long term (current) use of anticoagulants; Z91.030 Bee allergy status; Z88.8 Allergy status to other drugs, medicaments and biological substances
CPT/HCPCS: 72100; 99211

== ENCOUNTER → 2024-01-01 | Outpatient (CLI) | payer OTHER ==
--- NOTE | 2024-01-02 08:02 | MR ---
EXAMINATION TYPE: MR lumbar spine wo con DATE OF EXAM: 01/01/2024 1:05 PM CLINICAL INDICATION:Male, 73 years old with history of M51.36 DISC DEGENERATION, LUMBAR REGION; Low b ack pain that radiates into left buttocks and front of right thigh. COMPARISON: None TECHNIQUE: Multi planar, multi sequence imaging was performed utilizing: T1-weighted, T2-weighted, a nd turbo inversion recovery imaging of the lumbar spine. IV Contrast: (None if empty) FINDINGS: Alignment: The lumbar vertebral bodies have preserved heights and alignment. Cord: The conus medullaris and the distal spinal cord appear unremarkable with regards to their signa l intensity and morphology. Bones/Discs: Mild degeneration changes throughout the spine with osteophyte formation and facet joint arthropathy. Findings are worse at L5-S1 with complete loss of disc space. Intervertebral disc signa l is maintained. Severe atherosclerosis of the spinous processes. T12-L1: No evidence of significant spinal canal stenosis or neural foraminal stenosis. L1-L2: No evidence of significant spinal canal stenosis or neural foraminal stenosis. L2-L3: No evidence of significant spinal canal stenosis or neural foraminal stenosis. L3-L4: No evidence of significant spinal canal stenosis. Facet joint arthropathy mild to moderate sameera ateral neural foraminal stenosis. L4-L5: No evidence of significant spinal canal stenosis. Facet joint arthropathy moderate to severe b ilateral neural foraminal stenosis. L5-S1: Complete loss of disc space with Osteophyte which closely approximates nerves in the spinal ca nal series 601 image 3. This is [id number] spinal canal stenosis. No significant neural foramin al stenosis. No significant spinal canal or neural foraminal stenosis in the remainder of the visualized levels. Other findings: High T2 left renal cyst. Focal aneurysmal dilation of the inferior IMPRESSION: 1. L5-S1 central osteophyte which closely approximates forming nerves in the spinal canal. 2. Pseudoarthrosis of the spinous processes correlate for [place]'s disease. 3. Malalignment multilevel degeneration changes with neural foraminal stenosis worse at L3-4 and L4- L5 with moderate bilateral L3-L4 moderate to severe bilateral L4-L5. 4. Saccular aneurysm of the infrarenal abdominal aorta measuring up to 2.7 cm.
== END | disposition home or self-care (01) ==
LOC: RADMRIMAIN 12:05
PROVIDERS: ATTEND Specialist
DX: M51.36 Other intervertebral disc degeneration, lumbar region (principal); M25.78 Osteophyte, vertebrae; M48.26 Kissing spine, lumbar region; M48.061 Spinal stenosis, lumbar region without neurogenic claudication; I71.43 Infrarenal abdominal aortic aneurysm, without rupture; M54.16 Radiculopathy, lumbar region
CPT/HCPCS: 72148

== ENCOUNTER → 2024-01-10 | Outpatient (CLI) | payer OTHER ==
[2024-01-10 13:39] VITALS: BP 155/100; PULSE 76; RESP 16; TEMP 97.7
--- NOTE | 2024-01-10 14:11 | P.PAINPG ---
PQRS Measure Charge Sheet Comment: HISTORY OF PRESENT ILLNESS: A 73 yr old male presents today w severe and chronic LBP x 4 yrs secondary to DDD, spondylosis and facet arthropathy without myelopathy for evaluation. Pt states pain level is provoked at 9 /10 in intensity, constant, localized in the lumbar spine, predominantly axial, tingling in character w occasional shooting pain towards the BLEs, R > L. Pain is provoked by lifting, bending. Pain is alleviated by PT x 6 wks 4 yrs ago, medications, manual massage, repositioning and rest. Oswestry axial pain score at 34. Has abdominal would vac and would not benefit from an ABHI or RFA at this time. Interventional procedures include Medications include [place] 7.5/325mg #90 REVIEW OF ORGAN SYSTEMS: CONSTITUTIONAL: No fevers or chills. No recent weight loss. NEUROLOGICAL: + numbness and tingling along the distal extremities. No seizure disorders or headaches. MUSCULOSKELETAL: + pain PSYCHIATRIC: Denies current depression or suicidal thoughts. Physical Examinations : Constitutional : Cooperative , not in acute distress . Neurologic : Cranial nerve II to XII intact. No focal neurological deficits. Psychiatric : alert & oriented x 3. Matching mood & appropriate affect. Judgment & insight intact. Musculoskeletal : Cervical Spine Motor strength in the deltoid and biceps: Normal right side. Normal Left side Motor strength biceps and the wrist extensors: Normal right side . Normal left side Motor strength in the triceps muscle: Normal right side. Normal left side Deep tendon reflexes: Normal at the biceps. Normal at Brachioradialis. Normal at triceps Vertebral body tenderness to deep palpation over Cervical facet loading test: positive bilaterally Spurling test: positive bilaterally Neck distraction test: positive bilaterally Dexter sign: positive bilaterally Lumbar spine Motor strength lower extremities ,thigh and legs 5/5 Right side , 5/5 Left side Deep tendon reflexes : Normal Knee Jerk. Normal Ankle Jerk Vertebral body tenderness over Moreno Test positive Lumbar facet Loading Test: positive Right / positive Left Range of motion of the lumbar spine Flexion 30 degrees, extension 10 degrees Straight Leg Raise test: Left/ Right positive at degrees Viot test: positive right / positive left. Severe tenderness over the Sacroiliac joint on the Right / Left sides Gaenslen test: positive bilaterally Seated flexion test: positive bilaterally. Sacral spine : Severe tenderness over the Sacroiliac joint: right side / left side Range of motion: Flexion of the lumbar spine <60 degrees Range of motion: Extension of the lumbar spine <20 degrees Gaenslen's Test positive Vito test: positive right side / left side Thigh Thrust Test Sacral Thrust Test Imaging: MRI noncontrast of the lumbar spine from 07/01/2020 reviewed MRI contrast/ noncontrast of the cervical spine from 12/29/2022 reviewed MRI noncontrast of the lumbar spine from 01/01/24 reviewed Assessment/ Plan : Lumbar DDD Recommendation of medication management [place] 7.5/325 mg #90 w 1 RF. Use, side effects, adverse reactions and safe storage discussed. Opiate/ Narcotic agreement signed 12/21/23. All questions answered. I have spent greater than 30 minutes on patient care today. Dr Santos was available by phone for the evaluation of this patient. The time was used to review the medical records including relevant urine studies and Prescription history (MAPs), review of the available imaging, evaluation and examination of the patient, coordination of care with the medical staff and if applicable referring physicians, as well as creation of the medical record PQRS Narrative: Smoking Status Former smoker Hx Alcohol Use (MH) No Home Medications: Ambulatory Orders Nitroglycerin Sl Tabs [Nitrostat] 0.4 mg SUBLINGUAL Q5M PRN #25 tab 06/19/15 Metoprolol Tartrate [Lopressor] 25 mg PO BID 09/17/15 Omeprazole [PriLOSEC] 20 mg PO DAILY 09/17/15 EPINEPHrine (Auto Inject) [Epipen] 0.3 mg IM ONCE PRN 04/01/16 amLODIPine [Norvasc] 10 mg PO DAILY 04/01/16 Apixaban [Eliquis] 5 mg PO BID 08/04/23 Rosuvastatin Calcium [Crestor] 20 mg PO DIRECTED 08/04/23 Sennosides/Docusate Sodium [Senna-S 8.6-50 mg Tablet] 1 tab PO DAILY 08/04/23 Tamsulosin HCl [Flomax] 0.4 mg PO HS 08/04/23 HYDROcodone/APAP 7.5-325MG [[place] 7.5-325] 1 tab PO TID PRN 30 Days #90 tab 12/21/23 HYDROcodone/APAP 7.5-325MG [[place] 7.5-325] 1 tab PO TID PRN 30 Days #90 tab 12/21/23 diazePAM [Valium] 5 mg PO DAILY PRN 1 Days #2 tab 12/30/23 Controlled Substance Measures - Controlled Substance Measures Is patient prescribed a controlled substance at discharge?: No
== END ==
LOC: PNWHC3 12:56
PROVIDERS: ATTEND Specialist
DX: M51.36 Other intervertebral disc degeneration, lumbar region (principal); Z91.030 Bee allergy status; Z88.8 Allergy status to other drugs, medicaments and biological substances; Z87.891 Personal history of nicotine dependence
CPT/HCPCS: 99211

== ENCOUNTER → 2024-02-16 | Outpatient (CLI) | payer OTHER ==
[2024-02-16 13:13] VITALS: BP 152/100; PULSE 73; RESP 15; TEMP 98.5
--- NOTE | 2024-02-16 14:27 | P.PAINPG ---
PQRS Measure Charge Sheet Comment: HISTORY OF PRESENT ILLNESS: A 73 yr old male presents today w severe and chronic LBP x 4 yrs secondary to DDD, spondylosis and facet arthropathy without myelopathy for medication refills. Pt states pain level is provoked at 9 /10 in intensity, constant, localized in the lumbar spine, predominantly axial, tingling in character w occasional shooting pain towards the BLEs, R > L. Pain is provoked by lifting, bending. Pain is alleviated by PT x 6 wks 4 yrs ago, medications, manual massage, repositioning and rest. Oswestry axial pain score at 34. Has abdominal would vac and would not benefit from an ABHI or RFA at this time. Interventional procedures include Medications include [place] 7.5/325mg #90 REVIEW OF ORGAN SYSTEMS: CONSTITUTIONAL: No fevers or chills. No recent weight loss. NEUROLOGICAL: + numbness and tingling along the distal extremities. No seizure disorders or headaches. MUSCULOSKELETAL: + pain PSYCHIATRIC: Denies current depression or suicidal thoughts. Physical Examinations : Constitutional : Cooperative , not in acute distress . Neurologic : Cranial nerve II to XII intact. No focal neurological deficits. Psychiatric : alert & oriented x 3. Matching mood & appropriate affect. Judgment & insight intact. Musculoskeletal : Cervical Spine Motor strength in the deltoid and biceps: Normal right side. Normal Left side Motor strength biceps and the wrist extensors: Normal right side . Normal left side Motor strength in the triceps muscle: Normal right side. Normal left side Deep tendon reflexes: Normal at the biceps. Normal at Brachioradialis. Normal at triceps Vertebral body tenderness to deep palpation over Cervical facet loading test: positive bilaterally Spurling test: positive bilaterally Neck distraction test: positive bilaterally Dexter sign: positive bilaterally Lumbar spine +Abdominal Incisional Scar in place Motor strength lower extremities ,thigh and legs 5/5 Right side , 5/5 Left side Deep tendon reflexes : Normal Knee Jerk. Normal Ankle Jerk Vertebral body tenderness over Moreno Test positive Lumbar facet Loading Test: positive Right / positive Left Range of motion of the lumbar spine Flexion 30 degrees, extension 10 degrees Straight Leg Raise test: Left/ Right positive at degrees Vito test: positive right / positive left. Severe tenderness over the Sacroiliac joint on the Right / Left sides Gaenslen test: positive bilaterally Seated flexion test: positive b ilaterally. Sacral spine : Severe tenderness over the Sacroiliac joint: right side / left side Range of motion: Flexion of the lumbar spine <60 degrees Range of motion: Extension of the lumbar spine <20 degrees Gaenslen's Test positive Vito test: positive right side / left side Thigh Thrust Test Sacral Thrust Test Imaging: MRI noncontrast of the lumbar spine from 07/01/2020 reviewed MRI contrast/ noncontrast of the cervical spine from 12/29/2022 reviewed MRI noncontrast of the lumbar spine from 01/01/24 reviewed Assessment/ Plan : Lumbar DDD Recommendation of medication management Increase to [place] 10/325 mg #90 w 1 RF due to wound vac use. UDS collected 02/16/24. Use, side effects, adverse reactions and safe storage discussed. Opiate/ Narcotic agreement signed 12/21/23. All questions answered. I have spent greater than 30 minutes on patient care today. Dr Santos was available by phone for the evaluation of this patient. The time was used to review the medical records including relevant urine studies and Prescription history (MAPs), review of the available imaging, evaluation and examination of the patient, coordination of care with the medical staff and if applicable referring physicians, as well as creation of the medical record PQRS Narrative: Smoking Status Former smoker Hx Alcohol Use (MH) No Home Medications: Ambulatory Orders Nitroglycerin Sl Tabs [Nitrostat] 0.4 mg SUBLINGUAL Q5M PRN #25 tab 06/19/15 Metoprolol Tartrate [Lopressor] 25 mg PO BID 09/17/15 Omeprazole [PriLOSEC] 20 mg PO DAILY 09/17/15 EPINEPHrine (Auto Inject) [Epipen] 0.3 mg IM ONCE PRN 04/01/16 amLODIPine [Norvasc] 10 mg PO DAILY 04/01/16 Apixaban [Eliquis] 5 mg PO BID 08/04/23 Rosuvastatin Calcium [Crestor] 20 mg PO DIRECTED 08/04/23 Sennosides/Docusate Sodium [Senna-S 8.6-50 mg Tablet] 1 tab PO DAILY 08/04/23 Tamsulosin HCl [Flomax] 0.4 mg PO HS 08/04/23 diazePAM [Valium] 5 mg PO DAILY PRN 1 Days #2 tab 12/30/23 HYDROcodone/APAP 10-325MG [[place] 10-325] 1 tab PO TID PRN 30 Days #90 tab 02/16/24 HYDROcodone/APAP 10-325MG [[place] 10-325] 1 tab PO TID PRN 30 Days #90 tab 02/16/24 Controlled Substance Measures - Controlled Substance Measures Is patient prescribed a controlled substance at discharge?: Yes When asked, does pt state using other controlled substances?: No If prescribed controlled substance>3 days was MAPS reviewed?: Yes
== END ==
LOC: PNWHC3 12:07
PROVIDERS: ATTEND Specialist
DX: M51.36 Other intervertebral disc degeneration, lumbar region (principal); M47.816 Spondylosis without myelopathy or radiculopathy, lumbar region; Z87.891 Personal history of nicotine dependence; Z91.030 Bee allergy status; Z88.8 Allergy status to other drugs, medicaments and biological substances
CPT/HCPCS: 80307; 99212

== ENCOUNTER → 2024-04-12 | Outpatient (CLI) | payer OTHER ==
[2024-04-12 12:38] VITALS: BP 127/83; PULSE 79; RESP 16
--- NOTE | 2024-04-12 13:31 | P.PAINPG ---
Objective - Vital Signs Vital signs: Vital Signs Temp Pulse 79 04/12/24 12:24 Resp 16 04/12/24 12:24 BP 127/83 04/12/24 12:24 Pulse Ox 96 04/12/24 12:24 FiO2 Intake & Output 04/11/24 04/12/24 04/12/24 18:59 06:59 18:59 Weight 99.79 kg PQRS Measure Charge Sheet Mode of Arrival: Ambulatory Comment: HISTORY OF PRESENT ILLNESS: A 73 yr old male w at side presents today w severe and chronic LBP x 4 yrs secondary to DDD, spondylosis and facet arthropathy without myelopathy for medication refills. Pt states pain level is provoked at 5 /10 in intensity, constant, localized in the lumbar spine, predominantly axial, tingling in character w occasional shooting pain towards the BLEs, R > L. Pain is provoked by lifting, bending. Pain is alleviated by PT x 6 wks in 2019, physician guided stretches/ exercises 5 times weekly since Oct 2023, alternating heat & ice, medications, manual massage, repositioning and rest. Oswestry axial pain score at 34. States he has abdominal would debridement every Wednesday and would not benefit from an ABHI or RFA at this time. Interventional procedures include Medications include [place] 7.5/325mg #90 REVIEW OF ORGAN SYSTEMS: CONSTITUTIONAL: No fevers or chills. No recent weight loss. NEUROLOGICAL: + numbness and tingling along the distal extremities. No seizure disorders or headaches. MUSCULOSKELETAL: + pain PSYCHIATRIC: Denies current depression or suicidal thoughts. Physical Examinations : Constitutional : Cooperative , not in acute distress . Neurologic : Cranial nerve II to XII intact. No focal neurological deficits. Psychiatric : alert & oriented x 3. Matching mood & appropriate affect. Judgment & insight intact. Musculoskeletal : Cervical Spine Motor strength in the deltoid and biceps: Normal right side. Normal Left side Motor strength biceps and the wrist extensors: Normal right side . Normal left side Motor strength in the triceps muscle: Normal right side. Normal left side Deep tendon reflexes: Normal at the biceps. Normal at Brachioradialis. Normal at triceps Vertebral body tenderness to deep palpation over Cervical facet loading test: positive bilaterally Spurling test: positive bilaterally Neck distraction test: positive bilaterally Dexter sign: positive bilaterally Lumbar spine +Abdominal Incisional Scar in place Motor strength lower extremities ,thigh and legs 5/5 Right side , 5/5 Left side Deep tendon reflexes : Normal Knee Jerk. Normal Ankle Jerk Vertebral body tenderness over Moreno Test positive Lumbar facet Loading Test: positive Right / positive Left Range of motion of the lumbar spine Flexion 30 degrees, extension 10 degrees Straight Leg Raise test: Left/ Right positive at degrees Vito test: positive right / positive left. Severe tenderness over the Sacroiliac joint on the Right / Left sides Gaenslen test: positive bilaterally Seated flexion test: positive bilaterally. Sacral spine : Severe tenderness over the Sacroiliac joint: right side / left side Range of motion: Flexion of the lumbar spine <60 degrees Range of motion: Extension of the lumbar spine <20 degrees Gaenslen's Test positive Vito test: positive right side / left side Thigh Thrust Test Sacral Thrust Test Imaging: MRI noncontrast of the lumbar spine from 07/01/2020 reviewed MRI contrast/ noncontrast of the cervical spine from 12/29/2022 reviewed MRI noncontrast of the lumbar spine from 01/01/24 reviewed Assessment/ Plan : Lumbar DDD Recommendation of medication management Increase to [place] 10/325 mg #90 w 1 RF due to wound vac use. UDS fr 02/16/24 reviewed and consistent. Use, side effects, adverse reactions and safe storage discussed. Opiate/ Narcotic agreement signed 12/21/23. All questions answered. I have spent greater than 30 minutes on patient care today. Dr Santos was available by phone for the evaluation of this patient. The time was used to review the medical records including relevant urine studies and Prescription history (MAPs), review of the available imaging, evaluation and examination of the patient, coordination of care with the medical staff and if applicable referring physicians, as well as creation of the medical record - Pain Location Bilateral Lower Back Non-Pharmacological Interventions: Heat, Ice, Inactivity, Physical Therapy, Position/Reposition Pharmacological Interventions: PRN Medication, Scheduled Medication, Topical Medication PQRS Narrative: Smoking Status Former smoker Blood Pressure 127/83 Pain Intensity [Bilateral 8 Lower Back] Scale Used Numeric (1 - 10) Hx Alcohol Use (MH) No Home Medications: Ambulatory Orders Nitroglycerin Sl Tabs [Nitrostat] 0.4 mg SUBLINGUAL Q5M PRN #25 tab 06/19/15 Metoprolol Tartrate [Lopressor] 25 mg PO BID 09/17/15 Omeprazole [PriLOSEC] 20 mg PO DAILY 09/17/15 EPINEPHrine (Auto Inject) [Epipen] 0.3 mg IM ONCE PRN 04/01/16 amLODIPine [Norvasc] 10 mg PO DAILY 04/01/16 Apixaban [Eliquis] 5 mg PO BID 08/04/23 Rosuvastatin Calcium [Crestor] 20 mg PO DIRECTED 08/04/23 Sennosides/Docusate Sodium [Senna-S 8.6-50 mg Tablet] 1 tab PO DAILY 08/04/23 Tamsulosin HCl [Flomax] 0.4 mg PO HS 08/04/23 diazePAM [Valium] 5 mg PO DAILY PRN 1 Days #2 tab 12/30/23 HYDROcodone/APAP 10-325MG [[place] 10-325] 1 tab PO TID PRN 30 Days #90 tab 04/12/24 HYDROcodone/APAP 10-325MG [[place] 10-325] 1 tab PO TID PRN 30 Days #90 tab 04/12/24 Controlled Substance Measures - Controlled Substance Measures Is patient prescribed a controlled substance at discharge?: Yes When asked, does pt state using other controlled substances?: No If prescribed controlled substance>3 days was MAPS reviewed?: Yes
== END ==
LOC: PNWHC3 11:58
PROVIDERS: ATTEND Specialist
DX: M51.36 Other intervertebral disc degeneration, lumbar region (principal); Z79.01 Long term (current) use of anticoagulants; Z87.891 Personal history of nicotine dependence; Z91.030 Bee allergy status; Z88.8 Allergy status to other drugs, medicaments and biological substances
CPT/HCPCS: 99211

== ENCOUNTER → 2024-06-07 | Outpatient (CLI) | payer OTHER ==
[2024-06-07 12:37] VITALS: BP 163/99; PULSE 71; RESP 16; TEMP 97.3
--- NOTE | 2024-06-07 14:22 | P.PAINPG ---
PQRS Measure Charge Sheet Comment: HISTORY OF PRESENT ILLNESS: A 73 yr old male presents today w severe and chronic LBP x 4 yrs secondary to DDD, spondylosis and facet arthropathy without myelopathy for medication refills. Pt states pain level is provoked at 6 /10 in intensity, constant, localized in the lumbar spine, predominantly axial, tingling in character w occasional shooting pain towards the back of the BLEs, R > L. Pain is provoked by lifting, bending. Pain is alleviated by PT x 6 wks in 2019, physician guided stretches/ exercises 5 times weekly since Oct 2023, alternating heat & ice, medications, manual massage, repositioning and rest. Is not interested in cervical or lumbar procedures at this time. Oswestry axial pain score at 34. States he has abdominal would debridement every Wednesday and would not benefit from an ABHI or RFA at this time. Interventional procedures include Medications include [place] 7.5/325mg #90, Neurontin REVIEW OF ORGAN SYSTEMS: CONSTITUTIONAL: No fevers or chills. No recent weight loss. NEUROLOGICAL: + numbness and tingling along the distal extremities. No seizure disorders or headaches. MUSCULOSKELETAL: + pain PSYCHIATRIC: Denies current depression or suicidal thoughts. Physical Examinations : Constitutional : Cooperative , not in acute distress . Neurologic : Cranial nerve II to XII intact. No focal neurological deficits. Psychiatric : alert & oriented x 3. Matching mood & appropriate affect. Judgment & insight intact. Musculoskeletal : Cervical Spine Motor strength in the deltoid and biceps: Normal right side. Normal Left side Motor strength biceps and the wrist extensors: Normal right side . Normal left side Motor strength in the triceps muscle: Normal right side. Normal left side Deep tendon reflexes: Normal at the biceps. Normal at Brachioradialis. Normal at triceps Vertebral body tenderness to deep palpation over Cervical facet loading test: positive bilaterally Spurling test: positive bilaterally Neck distraction test: positive bilaterally Dexter sign: positive bilaterally Lumbar spine +Abdominal Incisional Scar in place Motor strength lower extremities ,thigh and legs 5/5 Right side , 5/5 Left side Deep tendon reflexes : Normal Knee Jerk. Normal Ankle Jerk Vertebral body tenderness over Moreno Test positive Lumbar facet Loading Test: positive Right / positive Left Range of motion of the lumbar spine Flexion 30 degrees, extension 10 degrees Straight Leg Raise test: Left/ Right positive at degrees Vito test: positive right / positive left. Severe tenderness over the Sacroiliac joint on the Right / Left sides Gaenslen test: positive bilaterally Seated flexion test: positive bilaterally. Sacral spine : Severe tenderness over the Sacroiliac joint: right side / left side Range of motion: Flexion of the lumbar spine <60 degrees Range of motion: Extension of the lumbar spine <20 degrees Gaenslen's Test positive Vito test: positive right side / left side Thigh Thrust Test Sacral Thrust Test Imaging: MRI noncontrast of the lumbar spine from 07/01/2020 reviewed MRI contrast/ noncontrast of the cervical spine from 12/29/2022 reviewed MRI noncontrast of the lumbar spine from 01/01/24 reviewed Assessment/ Plan : Lumbar DDD Recommendation of medication management. [place] 10/325 mg #90 w 1 RF. UDS fr 02/16/24 reviewed and consistent. Use, side effects, adverse reactions and safe storage discussed. Opiate/ Narcotic agreement signed 12/21/23. All questions answered. I have spent greater than 30 minutes on patient care today. Dr Santos was available by phone for the evaluation of this patient. The time was used to review the medical records including relevant urine studies and Prescription history (MAPs), review of the available imaging, evaluation and examination of the patient, coordination of care with the medical staff and if applicable referring physicians, as well as creation of the medical record - Pain Location Bilateral Lower Back Non-Pharmacological Interventions: Heat, Ice, Inactivity, Position/Reposition, Sitting Pharmacological Interventions: PRN Medication, Scheduled Medication, Topical Medication PQRS Narrative: Smoking Status Former smoker Hx Alcohol Use (MH) No Home Medications: Ambulatory Orders Nitroglycerin Sl Tabs [Nitrostat] 0.4 mg SUBLINGUAL Q5M PRN #25 tab 06/19/15 Metoprolol Tartrate [Lopressor] 25 mg PO BID 09/17/15 Omeprazole [PriLOSEC] 20 mg PO DAILY 09/17/15 EPINEPHrine (Auto Inject) [Epipen] 0.3 mg IM ONCE PRN 04/01/16 amLODIPine [Norvasc] 10 mg PO DAILY 04/01/16 Apixaban [Eliquis] 5 mg PO BID 08/04/23 Rosuvastatin Calcium [Crestor] 20 mg PO DIRECTED 08/04/23 Sennosides/Docusate Sodium [Senna-S 8.6-50 mg Tablet] 1 tab PO DAILY 08/04/23 Tamsulosin HCl [Flomax] 0.4 mg PO HS 08/04/23 diazePAM [Valium] 5 mg PO DAILY PRN 1 Days #2 tab 12/30/23 HYDROcodone/APAP 10-325MG [[place] 10-325] 1 tab PO TID PRN 30 Days #90 tab 06/07/24 HYDROcodone/APAP 10-325MG [[place] 10-325] 1 tab PO TID PRN 30 Days #90 tab 06/07/24 Controlled Substance Measures - Controlled Substance Measures Is patient prescribed a controlled substance at discharge?: Yes When asked, does pt state using other controlled substances?: No If prescribed controlled substance>3 days was MAPS reviewed?: Yes
== END ==
LOC: PNWHC3 12:01
PROVIDERS: ATTEND Specialist
DX: M51.36 Other intervertebral disc degeneration, lumbar region (principal); R10.84 Generalized abdominal pain; Z87.891 Personal history of nicotine dependence; Z88.8 Allergy status to other drugs, medicaments and biological substances
CPT/HCPCS: 99211

== ENCOUNTER → 2024-08-02 | Outpatient (CLI) | payer OTHER ==
[2024-08-02 12:40] VITALS: BP 151/93; PULSE 78; RESP 16; TEMP 97.1
--- NOTE | 2024-08-02 14:45 | P.PAINPG ---
PQRS Measure Charge Sheet Comment: HISTORY OF PRESENT ILLNESS: A 73 yr old male presents today w severe and chronic LBP x 4 yrs secondary to DDD, spondylosis and facet arthropathy without myelopathy for medication refills. Pt states pain level is provoked at 6 /10 in intensity, constant, localized in the lumbar spine, predominantly axial, tingling in character w occasional shooting pain towards the back of the BLEs. Pain is provoked by lifting, bending. Pain is alleviated by PT x 6 wks in 2019, physician guided stretches/ exercises 5 times weekly since Oct 2023, alternating heat & ice, medications, manual massage, repositioning and rest. Is not interested in cervical or lumbar procedures at this time. States he has abdominal wound d ebridement, has abd dressing intact, every Wednesday and would not benefit from an ABHI or RFA at this time. Interventional procedures include Medications include [place] 7.5/325mg #120, Neurontin REVIEW OF ORGAN SYSTEMS: CONSTITUTIONAL: No fevers or chills. No recent weight loss. NEUROLOGICAL: + numbness and tingling along the distal extremities. No seizure disorders or headaches. MUSCULOSKELETAL: + pain PSYCHIATRIC: Denies current depression or suicidal thoughts. Physical Examinations : Constitutional : Cooperative , not in acute distress . Neurologic : Cranial nerve II to XII intact. No focal neurological deficits. Psychiatric : alert & oriented x 3. Matching mood & appropriate affect. Judgment & insight intact. Musculoskeletal : Cervical Spine Motor strength in the deltoid and biceps: Normal right side. Normal Left side Motor strength biceps and the wrist extensors: Normal right side . Normal left side Motor strength in the triceps muscle: Normal right side. Normal left side Deep tendon reflexes: Normal at the biceps. Normal at Brachioradialis. Normal at triceps Vertebral body tenderness to deep palpation over Cervical facet loading test: positive bilaterally Spurling test: positive bilaterally Neck distraction test: positive bilaterally Dexter sign: positive bilaterally Lumbar spine +Abdominal Incisional Scar in place Motor strength lower extremities ,thigh and legs 5/5 Right side , 5/5 Left side Deep tendon reflexes : Normal Knee Jerk. Normal Ankle Jerk Vertebral body tenderness over Moreno Test positive Lumbar facet Loading Test: positive Rig ht / positive Left Range of motion of the lumbar spine Flexion 30 degrees, extension 10 degrees Straight Leg Raise test: Left/ Right positive at degrees Vito test: positive right / positive left. Severe tenderness over the Sacroiliac joint on the Right / Left sides Gaenslen test: positive bilaterally Seated flexion test: positive bilaterally. Sacral spine : Severe tenderness over the Sacroiliac joint: right side / left side Range of motion: Flexion of the lumbar spine <60 degrees Range of motion: Extension of the lumbar spine <20 degrees Gaenslen's Test positive Vito test: positive right side / left side Thigh Thrust Test Sacral Thrust Test Imaging: MRI noncontrast of the lumbar spine from 07/01/2020 reviewed MRI contrast/ noncontrast of the cervical spine from 12/29/2022 reviewed MRI noncontrast of the lumbar spine from 01/01/24 reviewed Assessment/ Plan : Lumbar radiculopathy Recommendation of medication management. Incr [place] 10/325 mg #120 w 1 RF. UDS from 02/16/24 reviewed and consistent. Use, side effects, adverse reactions and safe storage discussed. Opiate/ Narcotic agreement signed 12/21/23. All questions answered. I have spent greater than 30 minutes on patient care today. Dr Santos was available by phone for the evaluation of this patient. The time was used to review the medical records including relevant urine studies and Prescription history (MAPs), review of the available imaging, evaluation and examination of the patient, coordination of care with the medical staff and if applicable referring physicians, as well as creation of the medical record PQRS Narrative: Smoking Status Former smoker Hx Alcohol Use (MH) No Home Medications: Ambulatory Orders Nitroglycerin Sl Tabs [Nitrostat] 0.4 mg SUBLINGUAL Q5M PRN #25 tab 06/19/15 Metoprolol Tartrate [Lopressor] 25 mg PO BID 09/17/15 Omeprazole [PriLOSEC] 20 mg PO DAILY 09/17/15 EPINEPHrine (Auto Inject) [Epipen] 0.3 mg IM ONCE PRN 04/01/16 amLODIPine [Norvasc] 10 mg PO DAILY 04/01/16 Apixaban [Eliquis] 5 mg PO BID 08/04/23 Rosuvastatin Calcium [Crestor] 20 mg PO DIRECTED 08/04/23 Sennosides/Docusate Sodium [Senna-S 8.6-50 mg Tablet] 1 tab PO DAILY 08/04/23 Tamsulosin HCl [Flomax] 0.4 mg PO HS 08/04/23 diazePAM [Valium] 5 mg PO DAILY PRN 1 Days #2 tab 12/30/23 HYDROcodone/APAP 10-325MG [[place] 10-325] 1 tab PO Q6HR PRN 30 Days #120 tab 08/02/24 HYDROcodone/APAP 10-325MG [[place] 10-325] 1 tab PO QID PRN 30 Days #120 tab 08/02/24 Controlled Substance Measures - Controlled Substance Measures Is patient prescribed a controlled substance at discharge?: Yes When asked, does pt state using other controlled substances?: No If prescribed controlled substance>3 days was MAPS reviewed?: Yes
== END ==
LOC: PNWHC3 11:55
PROVIDERS: ATTEND Specialist
DX: M54.16 Radiculopathy, lumbar region
CPT/HCPCS: 99211

== ENCOUNTER → 2024-10-04 | Outpatient (CLI) | payer OTHER ==
[2024-10-04 12:34] VITALS: BP 146/85; PULSE 69; RESP 16
--- NOTE | 2024-10-04 14:19 | P.PAINPG ---
Objective - Vital Signs Vital signs: Intake & Output 10/03/24 10/04/24 10/04/24 18:59 06:59 18:59 Weight 99.337 kg PQRS Measure Charge Sheet Comment: HISTORY OF PRESENT ILLNESS: A 74 yr old male presents today w severe and chronic LBP x 4 yrs secondary to radiculopathy, spondylosis and facet arthropathy without myelopathy for medication refills. Pt states pain level is provoked at 6 /10 in intensity, constant, localized in the lumbar spine, predominantly axial, tingling in character w occasional shooting pain towards the back of the BLEs. Pain is provoked by lifting, bending. Pain is alleviated by PT x 6 wks in 2019, physician guided stretches/ exercises 5 times weekly since Oct 2023, alternating heat & ice, medications, manual massage, repositioning and rest. Is not interested in cervical or lumbar procedures at this time. States he has abdominal wound debridement, has abd waistbanding intact, every Wednesday and would not benefit from an ABHI or RFA at this time. Interventional procedures include Medications include [place] 7.5/325mg #120, Neurontin REVIEW OF ORGAN SYSTEMS: CONSTITUTIONAL: No fevers or chills. No recent weight loss. NEUROLOGICAL: + numbness and tingling along the distal extremities. No seizure disorders or headaches. MUSCULOSKELETAL: + pain PSYCHIATRIC: Denies current depression or suicidal thoughts. Physical Examinations : Constitutional : Cooperative , not in acute distress . Neurologic : Cranial nerve II to XII intact. No focal neurological deficits. Psychiatric : alert & oriented x 3. Matching mood & appropriate affect. Judgment & insight intact. Musculoskeletal : Cervical Spine Motor strength in the deltoid and biceps: Normal right side. Normal Left side Motor strength biceps and the wrist extensors: Normal right side . Normal left side Motor strength in the triceps muscle: Normal right side. Normal left side Deep tendon reflexes: Normal at the biceps. Normal at Brachioradialis. Normal at triceps Vertebral body tenderness to deep palpation over Cervical facet loading test: positive bilaterally Spurling test: positive bilaterally Neck distraction test: positive bilaterally Dexter sign: positive bilaterally Lumbar spine +Abdominal Incisional Scar in place Motor strength lower extremities ,thigh and legs 5/5 Right side , 5/5 Left side Deep tendon reflexes : Normal Knee Jerk. Normal Ankle Jerk Vertebral body tenderness over Moreno Test positive Lumbar facet Loading Test: positive Right / positive Left Range of motion of the lumbar spine Flexion 30 degrees, extension 10 degrees Straight Leg Raise test: Left/ Right positive at degrees Vito test: positive right / positive left. Severe tenderness over the Sacroiliac joint on the Right / Left sides Gaenslen test: positive bilaterally Seated flexion test: positive bilaterally. Sacral spine : Severe tenderness over the Sacroiliac joint: right side / left side Range of motion: Flexion of the lumbar spine <60 degrees Range of motion: Extension of the lumbar spine <20 degrees Gaenslen's Test positive Vito test: positive right side / left side Thigh Thrust Test Sacral Thrust Test Imaging: MRI noncontrast of the lumbar spine from 07/01/2020 reviewed MRI contrast/ noncontrast of the cervical spine from 12/29/2022 reviewed MRI noncontrast of the lumbar spine from 01/01/24 reviewed Assessment/ Plan : Lumbar radiculopathy Recommendation of medication management. [place] 10/325 mg #120 w 1 RF. UDS collected 10/04/24. Use, side effects, adverse reactions and safe storage discussed. Opiate/ Narcotic agreement signed 12/21/23. All questions answered. I have spent greater than 30 minutes on patient care today. Dr Santos was adonis ilable by phone for the evaluation of this patient. The time was used to review the medical records including relevant urine studies and Prescription history (MAPs), review of the available imaging, evaluation and examination of the patient, coordination of care with the medical staff and if applicable referring physicians, as well as creation of the medical record PQRS Narrative: Smoking Status Former smoker Hx Alcohol Use (MH) No Home Medications: Ambulatory Orders Nitroglycerin Sl Tabs [Nitrostat] 0.4 mg SUBLINGUAL Q5M PRN #25 tab 06/19/15 Metoprolol Tartrate [Lopressor] 25 mg PO BID 09/17/15 Omeprazole [PriLOSEC] 20 mg PO DAILY 09/17/15 EPINEPHrine (Auto Inject) [Epipen] 0.3 mg IM ONCE PRN 04/01/16 amLODIPine [Norvasc] 10 mg PO DAILY 04/01/16 Apixaban [Eliquis] 5 mg PO BID 08/04/23 Rosuvastatin Calcium [Crestor] 20 mg PO DIRECTED 08/04/23 Sennosides/Docusate Sodium [Senna-S 8.6-50 mg Tablet] 1 tab PO DAILY 08/04/23 Tamsulosin HCl [Flomax] 0.4 mg PO HS 08/04/23 diazePAM [Valium] 5 mg PO DAILY PRN 1 Days #2 tab 12/30/23 HYDROcodone/APAP 10-325MG [[place] 10-325] 1 tab PO Q6HR PRN 30 Days #120 tab 08/02/24 HYDROcodone/APAP 10-325MG [[place] 10-325] 1 tab PO QID PRN 30 Days #120 tab 08/02/24 Controlled Substance Measures - Controlled Substance Measures Is patient prescribed a controlled substance at discharge?: Yes When asked, does pt state using other controlled substances?: No If prescribed controlled substance>3 days was MAPS reviewed?: Yes
== END ==
LOC: PNWHC3 12:05
PROVIDERS: ATTEND Specialist
DX: M47.26 Other spondylosis with radiculopathy, lumbar region (principal); Z87.891 Personal history of nicotine dependence; Z91.030 Bee allergy status; Z88.8 Allergy status to other drugs, medicaments and biological substances
CPT/HCPCS: 80307; 99211

== ENCOUNTER → 2024-11-29 | Outpatient (CLI) | payer OTHER, MEDICARE ==
--- NOTE | 2024-11-29 16:07 | P.PAINPG ---
PQRS Measure Charge Sheet Comment: HISTORY OF PRESENT ILLNESS: A 74 yr old male presents today w severe and chronic LBP > 4 yrs secondary to radiculopathy, spondylosis and facet arthropathy without myelopathy for medication refills. Pt states pain level is provoked at 6 /10 in intensity, constant, localized in the lumbar spine, predominantly axial, tingling in character w occasional shooting pain towards the back of the BLEs. Pain is provoked by lifting, bending. Pain is alleviated by PT x 6 wks in 2019, physician guided stretches/ exercises 5 times weekly since Oct 2023, alternating heat & ice, medications, manual massage, repositioning and rest. Is not interested in cervical or lumbar procedures at this time. Interventional procedures include Medications include [place] 7.5/325mg #120, Neurontin REVIEW OF ORGAN SYSTEMS: CONSTITUTIONAL: No fevers or chills. No recent weight loss. NEUROLOGICAL: + numbness and tingling along the distal extremities. No seizure disorders or headaches. MUSCULOSKELETAL: + pain PSYCHIATRIC: Denies current depression or suicidal thoughts. Physical Examinations : Constitutional : Cooperative , not in acute distress . Neurologic : Cranial nerve II to XII intact. No focal neurological deficits. Psychiatric : alert & oriented x 3. Matching mood & appropriate affect. Judgment & insight intact. Musculoskeletal : Cervical Spine Motor strength in the deltoid and biceps: Normal right side. Normal Left side Motor strength biceps and the wrist extensors: Normal right side . Normal left side Motor strength in the triceps muscle: Normal right side. Normal left side Deep tendon reflexes: Normal at the biceps. Normal at Brachioradialis. Normal at triceps Vertebral body tenderness to deep palpation over Cervical facet loading test: positive bilaterally Spurling test: positive bilaterally Neck distraction test: positive bilaterally Dexter sign: positive bilaterally Lumbar spine +Abdominal Incisional Scar in place Motor strength lower extremities ,thigh and legs 5/5 Right side , 5/5 Left side Deep tendon reflexes : Normal Knee Jerk. Normal Ankle Jerk Vertebral body tenderness over Moreno Test positive Lumbar facet Loading Test: positive Right / positive Left Range of motion of the lumbar spine Flexion 30 degrees, extension 10 degrees Straight Leg Raise test: Left/ Right positive at degrees Vito test: positive right / positive left. Severe tenderness over the Sacroiliac joint on the Right / Left sides Gaenslen test: positive bilaterally Seated flexion test: positive bilaterally. Sacral spine : Severe tenderness over the Sacroiliac joint: right side / left side Range of motion: Flexion of the lumbar spine <60 degrees Range of motion: Extension of the lumbar spine <20 degrees Gaenslen's Test positive Vito test: positive right side / left side Thigh Thrust Test Sacral Thrust Test Imaging: MRI non contrast of the lumbar spine from 07/01/2020 reviewed MRI contrast/ non contrast of the cervical spine from 12/29/2022 reviewed MRI non contrast of the lumbar spine from 01/01/24 reviewed Assessment/ Plan : Lumbar radiculopathy Recommendation of medication management. [place] 10/325 mg #120 w 1 RF. UDS from 10/04/24 reviewed and consistent. Use, side effects, adverse reactions and safe storage discussed. Opiate/ Narcotic agreement signed 12/21/23. All questions answered. I have spent greater than 30 minutes on patient care today. Dr Santos was available by phone for the evaluation of this patient. The time was used to review the medical records including relevant urine studies and Prescription history (MAPs), review of the available imaging, evaluation and examination of the patient, coordination of care with the medical staff and if applicable referring physicians, as well as creation of the medical record PQRS Narrative: Smoking Status Former smoker Hx Alcohol Use (MH) No Home Medications: Ambulatory Orders Nitroglycerin Sl Tabs [Nitrostat] 0.4 mg SUBLINGUAL Q5M PRN #25 tab 06/19/15 Metoprolol Tartrate [Lopressor] 25 mg PO BID 09/17/15 Omeprazole [PriLOSEC] 20 mg PO DAILY 09/17/15 EPINEPHrine (Auto Inject) [Epipen] 0.3 mg IM ONCE PRN 04/01/16 amLODIPine [Norvasc] 10 mg PO DAILY 04/01/16 Apixaban [Eliquis] 5 mg PO BID 08/04/23 Rosuvastatin Calcium [Crestor] 20 mg PO HS 08/04/23 Sennosides/Docusate Sodium [Senna-S 8.6-50 mg Tablet] 1 tab PO DAILY 08/04/23 Tamsulosin HCl [Flomax] 0.4 mg PO HS 08/04/23 diazePAM [Valium] 5 mg PO DAILY PRN 1 Days #2 tab 12/30/23 HYDROcodone/APAP 10-325MG [[place] 10-325] 1 tab PO Q6HR PRN 30 Days #120 tab 11/29/24 HYDROcodone/APAP 10-325MG [[place] 10-325] 1 tab PO QID PRN 30 Days #120 tab 11/29/24 Controlled Substance Measures - Controlled Substance Measures Is patient prescribed a controlled substance at discharge?: Yes When asked, does pt state using other controlled substances?: No If prescribed controlled substance>3 days was MAPS reviewed?: Yes
[2024-11-29 17:55] VITALS: BP 180/96; PULSE 89; RESP 16; TEMP 98.3
== END ==
LOC: PNWHC3 12:14
PROVIDERS: ATTEND Specialist
DX: M54.16 Radiculopathy, lumbar region (principal); Z91.030 Bee allergy status; Z88.6 Allergy status to analgesic agent; Z88.8 Allergy status to other drugs, medicaments and biological substances; Z87.891 Personal history of nicotine dependence
CPT/HCPCS: 99211

== ENCOUNTER → 2025-01-24 | Outpatient (CLI) | payer MEDICARE, OTHER ==
[2025-01-24 12:35] VITALS: BP 142/90; PULSE 79; RESP 15; TEMP 97.9
--- NOTE | 2025-01-24 15:48 | P.PAINPG ---
PQRS Measure Charge Sheet Comment: HISTORY OF PRESENT ILLNESS: A 74 yr old male presents today w severe and chronic LBP > 4 yrs secondary to radiculopathy, spondylosis and facet arthropathy without myelopathy for medication refills. Pt states pain level is provoked at 4-6 /10 in intensity, constant, localized in the lumbar spine, predominantly axial, tingling in character w occasional shooting pain towards the back of the BLEs. Pain is provoked by lifting, bending. Pain is alleviated by PT x 6 wks in 2019, physician guided stretches/ exercises 5 times weekly since Oct 2023, alternating heat & ice, medications, manual massage, repositioning and rest. Is not interested in cervical or lumbar procedures at this time. Interventional procedures include Medications include [place] 7.5/325mg #120, Neurontin REVIEW OF ORGAN SYSTEMS: CONSTITUTIONAL: No fevers or chills. No recent weight loss. NEUROLOGICAL: + numbness and tingling along the distal extremities. No seizure disorders or headaches. MUSCULOSKELETAL: + pain PSYCHIATRIC: Denies current depression or suicidal thoughts. Physical Examinations : Constitutional : Cooperative , not in acute distress . Neurologic : Cranial nerve II to XII intact. No focal neurological deficits. Psychiatric : alert & oriented x 3. Matching mood & appropriate affect. Judgment & insight intact. Musculoskeletal : Cervical Spine Motor strength in the deltoid and biceps: Normal right side. Normal Left side Motor strength biceps and the wrist extensors: Normal right side . Normal left side Motor strength in the triceps muscle: Normal right side. Normal left side Deep tendon reflexes: Normal at the biceps. Normal at Brachioradialis. Normal at triceps Vertebral body tenderness to deep palpation over Cervical facet loading test: positive bilaterally Spurling test: positive bilaterally Neck distraction test: positive bilaterally Dexter sign: positive bilaterally Lumbar spine +Abdominal Incisional Scar in place Motor strength lower extremities ,thigh and legs 5/5 Right side , 5/5 Left side Deep tendon reflexes : Normal Knee Jerk. Normal Ankle Jerk Vertebral body tenderness over Moreno Test positive Lumbar facet Loading Test: positive Right / positive Left Range of motion of the lumbar spine Flexion 30 degrees, extension 10 degrees Straight Leg Raise test: Left/ Right positive at degrees Vito test: positive right / positive left. Severe tenderness over the Sacroiliac joint on the Right / Left sides Gaenslen test: positive bilaterally Seated flexion test: positive bilaterally. Sacral spine : Severe tenderness over the Sacroiliac joint: right side / left side Range of motion: Flexion of the lumbar spine <60 degrees Range of motion: Extension of the lumbar spine <20 degrees Gaenslen's Test positive Vito test: positive right side / left side Thigh Thrust Test Sacral Thrust Test Imaging: MRI non contrast of the lumbar spine from 07/01/2020 reviewed MRI contrast/ non contrast of the cervical spine from 12/29/2022 reviewed MRI non contrast of the lumbar spine from 01/01/24 reviewed Assessment/ Plan : Lumbar radiculopathy Recommendation of medication management. [place] 10/325 mg #120 w 1 RF. UDS from 10/04/24 reviewed and consistent. Use, side effects, adverse reactions and safe storage discussed. Opiate/ Narcotic agreement renewed 01/24/25. All questions an swered. I have spent greater than 30 minutes on patient care today. Dr Santos was available by phone for the evaluation of this patient. The time was used to review the medical records including relevant urine studies and Prescription history (MAPs), review of the available imaging, evaluation and examination of the patient, coordination of care with the medical staff and if applicable referring physicians, as well as creation of the medical record - Pain Location Generalized Non-Pharmacological Interventions: Heat, Ice Pharmacological Interventions: Medication PQRS Narrative: Smoking Status Former smoker Hx Alcohol Use (MH) No Home Medications: Ambulatory Orders Nitroglycerin Sl Tabs [Nitrostat] 0.4 mg SUBLINGUAL Q5M PRN #25 tab 06/19/15 Metoprolol Tartrate [Lopressor] 25 mg PO BID 09/17/15 Omeprazole [PriLOSEC] 20 mg PO DAILY 09/17/15 EPINEPHrine (Auto Inject) [Epipen] 0.3 mg IM ONCE PRN 04/01/16 amLODIPine [Norvasc] 10 mg PO DAILY 04/01/16 Apixaban [Eliquis] 5 mg PO BID 08/04/23 Rosuvastatin Calcium [Crestor] 20 mg PO HS 08/04/23 Sennosides/Docusate Sodium [Senna-S 8.6-50 mg Tablet] 1 tab PO DAILY 08/04/23 Tamsulosin HCl [Flomax] 0.4 mg PO HS 08/04/23 diazePAM [Valium] 5 mg PO DAILY PRN 1 Days #2 tab 12/30/23 HYDROcodone/APAP 10-325MG [[place] 10-325] 1 tab PO Q6HR PRN 30 Days #120 tab 01/24/25 HYDROcodone/APAP 10-325MG [[place] 10-325] 1 tab PO QID PRN 30 Days #120 tab 01/24/25 Controlled Substance Measures - Controlled Substance Measures Is patient prescribed a controlled substance at discharge?: Yes When asked, does pt state using other controlled substances?: No If prescribed controlled substance>3 days was MAPS reviewed?: Yes
== END ==
LOC: PNWHC3 12:05
PROVIDERS: ATTEND Specialist
DX: M54.16 Radiculopathy, lumbar region (principal); Z91.030 Bee allergy status; Z88.8 Allergy status to other drugs, medicaments and biological substances; Z87.891 Personal history of nicotine dependence
CPT/HCPCS: 99212

== ENCOUNTER → 2025-03-21 | Outpatient (CLI) | payer MEDICARE, OTHER ==
[2025-03-21 12:43] VITALS: BP 136/90; PULSE 101; RESP 18; TEMP 96.8
--- NOTE | 2025-03-21 15:55 | P.PAINPG ---
PQRS Measure Charge Sheet Comment: HISTORY OF PRESENT ILLNESS: A 74 yr old male presents today w severe and chronic LBP > 4 yrs secondary to radiculopathy, spondylosis and facet arthropathy without myelopathy for medication refills. Pt states pain level is provoked at 4-6 /10 in intensity, constant, localized in the lumbar spine, predominantly axial, tingling in character w occasional shooting pain towards the back of the BLEs. Pain is provoked by lifting, bending. Pain is alleviated by PT x 6 wks in 2019, physician guided stretches/ exercises 5 times weekly since Oct 2023, alternating heat & ice, medications, manual massage, repositioning and rest. Is not interested in cervical or lumbar procedures at this time. Interventional procedures include Medications include [place] 7.5/325mg #120, Neurontin REVIEW OF ORGAN SYSTEMS: CONSTITUTIONAL: No fevers or chills. No recent weight loss. NEUROLOGICAL: + numbness and tingling along the distal extremities. No seizure disorders or headaches. MUSCULOSKELETAL: + pain PSYCHIATRIC: Denies current depression or suicidal thoughts. Physical Examinations : Constitutional : Cooperative , not in acute distress . Neurologic : Cranial nerve II to XII intact. No focal neurological deficits. Psychiatric : alert & oriented x 3. Matching mood & appropriate affect. Judgment & insight intact. Musculoskeletal : Cervical Spine Motor strength in the deltoid and biceps: Normal right side. Normal Left side Motor strength biceps and the wrist extensors: Normal right side . Normal left side Motor strength in the triceps muscle: Normal right side. Normal left side Deep tendon reflexes: Normal at the biceps. Normal at Brachioradialis. Normal at triceps Vertebral body tenderness to deep palpation over Cervical facet loading test: positive bilaterally Spurling test: positive bilaterally Neck distraction test: positive bilaterally Dexter sign: positive bilaterally Lumbar spine +Abdominal Incisional Scar in place Motor strength lower extremities ,thigh and legs 5/5 Right side , 5/5 Left side Deep tendon reflexes : Normal Knee Jerk. Normal Ankle Jerk Vertebral body tenderness over Moreno Test positive Lumbar facet Loading Test: positive Right / positive Left Range of motion of the lumbar spine Flexion 30 degrees, extension 10 degrees Straight Leg Raise test: Left/ Right positive at degrees Vito test: positive right / positive left. Severe tenderness over the Sacroiliac joint on the Right / Left sides Gaenslen test: positive bilaterally Seated flexion test: positive bilaterally. Sacral spine : Severe tenderness over the Sacroiliac joint: right side / left side Range of motion: Flexion of the lumbar spine <60 degrees Range of motion: Extension of the lumbar spine <20 degrees Gaenslen's Test positive Vito test: positive right side / left side Thigh Thrust Test Sacral Thrust Test Imaging: MRI non contrast of the lumbar spine from 07/01/2020 reviewed MRI contrast/ non contrast of the cervical spine from 12/29/2022 reviewed MRI non contrast of the lumbar spine from 01/01/24 reviewed Assessment/ Plan : Lumbar radiculopathy Recommendation of medication management. [place] 10/325 mg #120 w 1 RF. UDS collected 03/21/25. Use, side effects, adverse reactions and safe storage discussed. Opiate/ Narcotic agreement renewed 01/24/25. All questions answered. I have spent greater than 30 minutes on patient care today. Dr Santos was available by phone for the evaluation of this patient. The time was used to review the medical records including relevant urine studies and Prescription history (MAPs), review of the available imaging, evaluation and examination of the patient, coordination of care with the medical staff and if applicable referring physicians, as well as creation of the medical record PQRS Narrative: Smoking Status Former smoker Hx Alcohol Use (MH) No Home Medications: Ambulatory Orders Nitroglycerin Sl Tabs [Nitrostat] 0.4 mg SUBLINGUAL Q5M PRN #25 tab 06/19/15 Metoprolol Tartrate [Lopressor] 25 mg PO BID 09/17/15 Omeprazole [PriLOSEC] 20 mg PO DAILY 09/17/15 EPINEPHrine (Auto Inject) [Epipen] 0.3 mg IM ONCE PRN 04/01/16 amLODIPine [Norvasc] 10 mg PO DAILY 04/01/16 Apixaban [Eliquis] 5 mg PO BID 08/04/23 Rosuvastatin Calcium [Crestor] 20 mg PO HS 08/04/23 Sennosides/Docusate Sodium [Senna-S 8.6-50 mg Tablet] 1 tab PO DAILY 08/04/23 Tamsulosin HCl [Flomax] 0.4 mg PO HS 08/04/23 diazePAM [Valium] 5 mg PO DAILY PRN 1 Days #2 tab 12/30/23 HYDROcodone/APAP 10-325MG [[place] 10-325] 1 tab PO Q6HR PRN 30 Days #120 tab 03/21/25 HYDROcodone/APAP 10-325MG [[place] 10-325] 1 tab PO QID PRN 30 Days #120 tab 03/21/25 Controlled Substance Measures - Controlled Substance Measures Is patient prescribed a controlled substance at discharge?: Yes When asked, does pt state using other controlled substances?: No If prescribed controlled substance>3 days was MAPS reviewed?: Yes
== END ==
LOC: PNWHC3 12:08
PROVIDERS: ATTEND Specialist
DX: M47.26 Other spondylosis with radiculopathy, lumbar region (principal); Z87.891 Personal history of nicotine dependence; Z91.030 Bee allergy status; Z88.8 Allergy status to other drugs, medicaments and biological substances
CPT/HCPCS: 80307; 99211